=== PATIENT | female | born 1930 | race Caucasian/White ===

== ENCOUNTER 2016-11-12 08:46 | Inpatient (IN) | payer OTHER ==
--- NOTE | 2016-11-12 09:15 | EDPHY ---
H & P Stated Complaint: mechanical fall out of bed this am Time Seen by Provider: 11/12/16 09:03 HPI/ROS: CHIEF COMPLAINT: Left hip pain HISTORY OF PRESENT ILLNESS: 86-year-old female arrives via ambulance, not a trauma activation, stating that this morning she woke up when to use her walker and route to the bathroom however the walker collapsed causing her fall onto her left buttock and hip. She was able to get herself up using her cane and go back to bed, fell back to sleep but awoke with left hip pain. No head injury. This was not a syncopal episode. Her only complaint is left hip and pelvis pain. She is unable to ambulate without assistance. There was no prodrome such as chest pain, dyspnea, dizziness, nausea, vomiting. Last oral intake was last evening PRIMARY CARE PROVIDER:Dr. Tiffany Spann REVIEW OF SYSTEMS: A ten point review of systems was performed and is negative with the exception of the items mentioned in the HPI PAST MEDICAL/SURGICAL HISTORY: no anticoagulant use, hypothyroid SOCIAL HISTORY: denies alcohol use at time of incident. Lives at the independent living facility at [facility] PHYSICAL EXAM 1) GENERAL: Well-developed, well-nourished, alert and oriented. Appears to be in no acute distress. Answering questions appropriately. 2) HEAD: Normocephalic, atraumatic 3) HEENT: Pupils equal, round, reactive to light bilaterally. Negative Horners. Nasopharynx, oropharynx, clear. No deformity or angulation of nose. No septal hematoma. No rhinorrhea. No oral trauma. Ears bilaterally with normal tympanic membranes. No hemotympanum. No fluid or blood in the external auditory canal. No raccoon eyes. No Silvestre sign. Teeth are normally aligned with no gross malocclusion, TMJ bilaterally nontender, facial bones nontender including the zygomatic arch, maxilla mandible. 4) NECK: No cervical collar is on. Posterior cervical spine is nontender, no stepoff, no effusion. Full range of motion which does not elicit any midline cervical spine pain, no posterior midline tenderness, no step-off. 5) LUNGS: Clear to auscultation bilaterally, no wheezes, no rhonchi, no retractions. No obvious signs of trauma. No chest wall pain. No flaring, no grunting. Moving symmetrically. No crepitus. 6) HEART: Regular rate and rhythm, 7) ABDOMEN: No guarding, no rebound, no focal tenderness, no peritoneal signs, no signs of trauma, no ecchymosis 8) MUSCULOSKELETAL: Left lower extremity: Shortened, pain to the left inguinal region and left buttock with range of motion. Intact skin. DP PT pulses present and brisk. Normal color normal temperature distally. Wound soft compartments. Tender to palpation left greater trochanteric region. Otherwise, Moving all extremities, no focal areas of tenderness, no obvious trauma. 9) BACK: No midline vertebral tenderness, no fluctuance, no step-off, no obvious trauma, no visual or palpable abnormality. 10) SKIN: No laceration. No abrasion DIFFERENTIAL DIAGNOSIS: [ no particular include but limited to fracture, dislocation, compartment syndrome - Personal History Current Tetanus Diphtheria and Acellular Pertussis (TDAP): Unsure - Medical/Surgical History Hx Asthma: No Hx Chronic Respiratory Disease: No Hx Diabetes: No Hx Cardiac Disease: No Hx Renal Disease: No Hx Cirrhosis: No Hx Alcoholism: No Hx HIV/AIDS: No Hx Splenectomy or Spleen Trauma: No Other PMH: bilateral hip replacements, knee surgeries - Social History Smoking Status: Never smoked Constitutional: Initial Vital Signs Temperature (C) 36.6 C 11/12/16 08:58 Heart Rate 91 11/12/16 08:58 Respiratory Rate 16 11/12/16 08:58 Blood Pressure 149/100 H 11/12/16 08:58 O2 Sat (%) 88 L 11/12/16 08:58 O2 Delivery Mode Room Air O2 (L/minute) 2 Allergies/Adverse Reactions: No Known Allergies Allergy (Unverified 04/02/12 11:02) Home Medications: Medication Instructions Recorded Acetaminophen [Tylenol 325mg (*)] 325 mg PO DAILY PRN 11/12/16 Fluoxetine HCl [Prozac 40 mg] 40 mg PO DAILY 11/12/16 Levothyroxine [Synthroid 88 mcg 88 mcg PO DAILY06 11/12/16 (*)] Primidone 50 mg PO BID 11/12/16 Propranolol HCl [Inderal 20mg (*)] 20 mg PO BID 11/12/16 celeCOXIB [Celebrex (*)] 200 mg PO HS 11/12/16 clonazePAM [Klonopin (*)] 0.25 mg PO BID 11/12/16 Medical Decision Making - Diagnostics Imaging Results: Imaging Impressions Chest X-Ray 11/12/16 09:12 Impression: No acute findings in the chest. Hip X-Ray 11/12/16 09:12 Impression: 1. Probable nondisplaced fracture of the left superior pubic ramus. 2. Severe osteoarthritis in the left hip. Findings discussed with Chelsey Sequeira 11/12/2016 at 1014. ED Course/Re-evaluation: Patient was re-evaluated with serial examinations. Patient also examined by Dr Orantes in ER. Discussed with the daughter in the patient imaging findings. the patient cannot ambulate. I recommended admission for PT OT, pain control, Ortho consultation. Patient and daughter are agreeable with this. 10:52 a.m.: Phone consultation with hospitalist Dr. Sagrario Foreman who will admit patient - Data Points Laboratory Results: Laboratory Results 11/12/16 09:25 11/12/16 09:25 11/12/16 11/12/16 11/12/16 09:25 09:25 09:25 WBC 10.64 10^3/uL H 10^3/uL (3.80-9.50) RBC 4.63 10^6/uL 10^6/uL (4.18-5.33) Hgb 15.0 g/dL g/dL (12.6-16.3) Hct 45.4 % % (38.0-47.0) MCV 98.1 fL fL (81.5-99.8) MCH 32.4 pg pg (27.9-34.1) MCHC 33.0 g/dL g/dL (32.4-36.7) RDW 12.9 % % (11.5-15.2) Plt Count 194 10^3/uL 10^3/uL (150-400) MPV 9.0 fL fL (8.7-11.7) Neut % (Auto) 73.5 % % (39.3-74.2) Lymph % (Auto) 19.2 % % (15.0-45.0) Guadalupe % (Auto) 5.2 % % (4.5-13.0) Eos % (Auto) 1.1 % % (0.6-7.6) Baso % (Auto) 0.2 % L % (0.3-1.7) Nucleat RBC Rel Count 0.0 % % (0.0-0.2) Absolute Neuts (auto) 7.83 10^3/uL H 10^3/uL (1.70-6.50) Absolute Lymphs (auto) 2.04 10^3/uL 10^3/uL (1.00-3.00) Absolute Monos (auto) 0.55 10^3/uL 10^3/uL (0.30-0.80) Absolute Eos (auto) 0.12 10^3/uL 10^3/uL (0.03-0.40) Absolute Basos (auto) 0.02 10^3/uL 10^3/uL (0.02-0.10) Absolute Nucleated RBC 0.00 10^3/uL 10^3/uL (0-0.01) Immature Gran % 0.8 % % (0.0-1.1) Immature Gran # 0.08 10^3/uL 10^3/uL (0.00-0.10) PT 13.5 SEC SEC (12.0-15.0) INR 1.04 (0.83-1.16) APTT 27.1 SEC SEC (23.0-38.0) Sodium 138 mEq/L mEq/L (134-144) Potassium 3.6 mEq/L mEq/L (3.5-5.2) Chloride 105 mEq/L mEq/L (97-110) Carbon Dioxide 21 mEq/l L mEq/l (22-31) Anion Gap 12 mEq/L mEq/L (8-16) BUN 16 mg/dL mg/dL (7-23) Creatinine 0.8 mg/dL mg/dL (0.6-1.0) Estimated GFR > 60 Glucose 86 mg/dL mg/dL (70-100) Calcium 9.1 mg/dL mg/dL (8.5-10.4) Departure - Departure Disposition: [facility] Inpatient Acute Clinical Impression: Inferior pubic ramus fracture Qualifiers: Encounter type: initial encounter Fracture type: closed Laterality: left Qualified Code(s): S32.592A - Other specified fracture of left pubis, initial encounter for closed fracture Condition: Fair
[2016-11-12 09:37] LABS: % IMMATURE GRANULYOCYTES 0.8 % (0.0-1.1); ABSOLUTE IMMATURE GRANULOCYTES 0.08 10^3/uL (0.00-0.10); ADD DIFF? NO; ADD MORPH? NO; ADD SCAN? NO; ATYPICAL LYMPHOCYTE FLAG 0 (0-99); FRAGMENT RBC FLAG 0 (0-99); HEMATOCRIT 45.4 % (38.0-47.0); LEFT SHIFT FLG 10 (0-99); LIPEMIA HEMOLYSIS FLAG 80 (0-99); MEAN CELL HEMOGLOBIN 32.4 pg (27.9-34.1); MEAN CELL VOLUME 98.1 fL (81.5-99.8); PLATELET CLUMPS FLAG 0 (0-99); PLATELET COUNT 194 10^3/uL (150-400); RED BLOOD CELL COUNT 4.63 10^6/uL (4.18-5.33); RED CELL DISTRIBUTION WIDTH 12.9 % (11.5-15.2)
[2016-11-12 09:49] LABS: INR 1.04 (0.83-1.16); PROTIME(PATIENT) 13.5 SEC (12.0-15.0)
[2016-11-12 09:50] LABS: APTT 27.1 SEC (23.0-38.0)
[2016-11-12 09:59] LABS: ANION GAP 12 mEq/L (8-16); CALCIUM 9.1 mg/dL (8.5-10.4); CARBON DIOXIDE 21 mEq/l (22-31); CHLORIDE 105 mEq/L (97-110); CREATININE 0.8 mg/dL (0.6-1.0); GLOMERULAR FILTRATION RATE > 60; GLUCOSE 86 mg/dL (70-100); POTASSIUM 3.6 mEq/L (3.5-5.2); SODIUM 138 mEq/L (134-144)
[2016-11-12] MEDS ORDERED: ONDANSETRON 4 MG/2 ML VIAL IVP PRN (11:03)
[2016-11-12] MEDS ORDERED: ACETAMINOPHEN 325 MG TAB PO PRN (11:03)
[2016-11-12] MEDS ORDERED: ONDANSETRON DISINTEGRATING 4 MG TAB PO PRN (11:03)
[2016-11-12] MEDS ORDERED: NON-FORMULARY NEW DRUG (Fluoxetine Hcl [Prozac 40 Mg] 40 MG) PO SCH (15:45)
--- NOTE | 2016-11-12 16:49 | GHP ---
[f rep st] HISTORY AND PHYSICAL DATE OF ADMISSION: 11/12/2016 REFERRING PHYSICIAN: Dax Bonilla MD SERVICE: [facility] Hospitalist CONSULTS: Orthopedic Surgery, Dax Bonilla MD. CHIEF COMPLAINT: Left hip pain, status post fall at her home. HISTORY OF PRESENT ILLNESS: The patient is an 86-year-old female who lives independently at [facility], who came in by ambulance to the emergency department today after falling at her home. She says that very early in the morning she was going to the bathroom. Thinks that her ankle twisted underneath her and she fell down onto her left hip. She denies hitting her head, but she also states that she does not remember what happened immediately after the fall. She says that eventually she got herself over to her bed and called for help. She denies any palpitations, lightheadedness, dizziness prior to the fall. She denies any head pain, headache, bleeding or bruising around her head area. She denies any shoulder or neck pain. She states that she fell a few days prior also , twisting her right ankle which is quite bruised, but she had been able to walk on it. She denies any pain in that area currently. Prior to these falls she said that she has been feeling well and in her normal state of health. She denies any recent fever, cough, chills, congestion, nausea , vomiting, diarrhea, headache. She has been having some increasing arthritis pain, particularly in her left shoulder and hip, and was planning to see her primary care provider soon for a referral to orthopedics. She does not recall eating this morning and she is hungry. She says her pain is currently okay when sitting still in bed. Her daughter was not in the room during my visit with her, but she was available earlier in the day. I have placed a call to her to confirm the details of these events. The patient states that her daughter is her power of deputy attorney general. PAST MEDICAL HISTORY: Anxiety, depression, hypothyroidism, tremor, osteoarthritis PAST SURGICAL HISTORY: Right hip arthroplasty. SOCIAL HISTORY: Lives independently at [facility]. She denies any alcohol use or tobacco use. She has a daughter who lives in the area who is her power of deputy attorney general. ALLERGIES: She denies any known drug allergies. MEDICATIONS: Klonopin 0.25 mg twice a day. Fluoxetine 40 mg once a day. Levothyroxine 88 mcg once a day. Primidone 50 mg twice a day. Propranolol HCL 20 mg twice a day. Tylenol as needed. Celebrex 200 mg once a day. REVIEW OF SYSTEMS: 10-point review of systems was conducted and negative, except as noted above. PHYSICAL EXAM: GENERAL: She is a very pleasant elderly female, resting comfortably in her bed in no apparent distress. VITAL SIGNS: Blood pressure is 175/80 (was 194/100 in the emergency department) . She does not recall taking her medication this morning. Heart rate is 80, O2 saturation is 93% on 2 L, respiratory rate was 16, and she is 98.1 on temperature. HEENT: Normocephalic, atraumatic. Pupils equal, round, reactive to light. Extra movements are intact. Oropharynx shows no lesions or trauma. NECK: Supple. No lymphadenopathy, thyromegaly, or tenderness along the cervical spine. CARDIOVASCULAR: Regular rate and rhythm. LUNGS: Clear to auscultation bilaterally. ABDOMEN: Soft. Normoactive bowel sounds. Nontender. Nondistended. EXTREMITIES: Moves all extremities. No cyanosis, clubbing, or edema noted. She has on SCDs and TEDs, which I did not remove to examine her right ankle. However , upon palpation of her ankle there is no tenderness, but she does state that the top of her right ankle is very bruised. NEURO: Cranial nerves 2-12 are grossly intact. PSYCH: She is very pleasant and oriented. She responds appropriately and speech is fluent. LABORATORY DATA: White blood cell count 10.64, H and H of 15 and 45.4, platelet count 194. INR is 1.04. Sodium 138, potassium 3.6, chloride 105, CO2 of 21, BUN of 16, creatinine 0.8, glucose 86, and calcium at 9.1. Per lab reviewed in [employer], her last TSH was done on August 27, 2016. That was at a good range of 1.63. Vitamin D level has not been done since 2009, so will order this for the morning. Hemoglobin A1c was done August 27, 2016. That was normal at 5.2. I do not see a bone density in the chart. Hip x-ray from the emergency department evaluation showed a probable nondisplaced fracture of the left superior pubic rami, severe osteoarthritis in the left hip. Chest x-ray was done and showed a right hemidiaphragm mildly elevated, but no acute changes. Both studies were reviewed personally by myself, and I agree with the final documentation. ASSESSMENT/PLAN: 1. Pubic rami fracture status post a mechanical fall: I have discussed the case with Dr. Dax Bonilla, who will consult on appropriate orthopedic care. Likely to be nonsurgical at this point, and focus will be pain medication and mobility. PT-OT consults have been ordered. I have discussed with her short- term rehab facility, which she is amenable to. I have placed a call to her daughter to discuss the same, left a message for her to contact me. Pelvic x- ray was ordered for completeness. Comfortable in current positioning and oral pain medications have been ordered. 2. Anxiety and depression: She will be continued on her home medications. However, should consider discussing with her primary care provider the use of long-acting benzodiazepines which are generally contraindicated in the elderly. 3. Hypothyroidism: TSH was recently done and in good replacement range, home medications will be continued. 4. Tremor: Primidone and propranolol continued. 5. Hypertension: Noted to be quite elevated in the emergency department, and slightly better now that she is on the medical floor. Doubt that she has taken her medications today. Does not have a diagnosis of HTN, takes propranolol for tremor per daughter. 6. Deep vein thrombosis prophylaxis: SCDs and TEDs currently. Consider adding pharmacological after evaluation by Orthopedic surgery. PRIMARY CARE PHYSICIAN: [facility], Dr. Guillory/ Maria Ines. CODE STATUS: do not resuscitate DISPOSITION: Likely greater than 2 midnights due to pain and need for likely SNF placement. /[id number]/MODL MTDD
[2016-11-12] MEDS: LEVOTHYROXINE 88 MCG TAB PO SCH (16:55)
[2016-11-12] MEDS: HYDROCODONE/APAP 5/325 TAB PO PRN (19:11)
[2016-11-12] MEDS: clonazePAM 0.5 MG TAB PO SCH (20:40)
[2016-11-12] MEDS: PROPRANOLOL HCL 20 MG TAB PO SCH (20:41)
[2016-11-12] MEDS: PRIMIDONE 50 MG TAB PO SCH (20:42)
[2016-11-13] MEDS: HYDROCODONE/APAP 5/325 TAB PO PRN ×5 (01:20→22:58)
--- NOTE | 2016-11-13 03:45 | GCON ---
[f rep st] CONSULTATION DATE OF CONSULTATION: 11/12/2016 CHIEF COMPLAINT: Left hip and groin pain, status post fall. HISTORY OF PRESENT ILLNESS: This is an 86-year-old female, who lives independently. She has a hist ory of a right total hip replacement. She has known arthritis on the left. She has had pain in the left hip for a number of years. She says this has been somewhat intermittent, but tolerable. She was told she needs a hip replacement, but had not undergone this. She did not desire to undergo faby kristy and the recovery period. She did fall 2 days ago, as well as twice yesterday. She has had dif ficulty ambulating on this since. She also twisted her ankle. The ankle has felt okay. She contin ues to have groin pain in the left side, which is worse than was prior, a few days ago. She has karma e pain radiating down the thigh and then past the knee. She denies other symptoms. PAST MEDICAL HISTORY: Anxiety, depression, hypertension, tremor. PAST SURGICAL HISTORY: Right hip arthroplasty. SOCIAL HISTORY: She lives independently. She does not use alcohol or tobacco. ALLERGIES: No known drug allergies. MEDICATIONS: Klonopin, fluoxetine, levothyroxine, propranolol, primidone, Tylenol, Celebrex. REVIEW OF SYSTEMS: A 10-point review of systems was performed and otherwise negative. PHYSICAL EXAMINATION: GENERAL: She is an alert, oriented, alert female, who appears in no acute di stress. VITAL SIGNS: Stable. HEENT: Her head is normocephalic. Her eyes are equal, round. Her face is atraumatic. Her mouth shows moist mucous membranes. HEART: Regular rate and rhythm. LUNG S: Clear. ABDOMEN: Soft. EXTREMITIES: Her upper extremity, she moves well without abnormality. Good strength. Her left lower extremity can externally rotate without much pain. She internally r otates to 0 degrees, externally to 40 degrees. I can flex her to about 40 degrees. Beyond this, kevin ferrera has pain. I can move her well within her range of motion, however. Her knee and ankle appear atr aumatic. Her right lower extremity, she has some bruising of the ankle and is tender in the ATFL. She is neurovascularly intact with good strength distally in both extremities. DIAGNOSTIC STUDIES: Radiographs show a nondisplaced left pubic ramus fracture and severe left hip o steoarthritis, along with a right total hip arthroplasty. ASSESSMENT: 1. Left pubic ramus fracture. 2. Severe left hip degenerative joint disease. 3. Post right total hip. PLAN: I discussed the nature of her condition and treatment options. I think her acute pain and di fficulty walking are coming from her ramus fracture. This is nondisplaced and does appear stable. I would allow her to weight-bear as tolerated on this. I believe a lot of her pain is coming from h er hip arthritis, and this may be acutely worsened arthritic flare due to her falls. She will likel y need a total hip replacement at some point. She is not very interested in a total hip replacement due to her experience the last time. We will allow her to recoup from the recent falls and the pub ic rami fracture and follow her as an outpatient to see if she does desire total hip at some point. /[id number]/MODL
[2016-11-13] MEDS: LEVOTHYROXINE 88 MCG TAB PO SCH (05:41)
[2016-11-13 05:42] LABS: HEMATOCRIT 41.2 % (38.0-47.0); HEMOGLOBIN 13.7 g/dL (12.6-16.3); MEAN CELL HEMOGLOBIN 32.6 pg (27.9-34.1); MEAN CELL HEMOGLOBIN CONCENTR. 33.3 g/dL (32.4-36.7); MEAN CELL VOLUME 98.1 fL (81.5-99.8); RED BLOOD CELL COUNT 4.2 10^6/uL (4.18-5.33); RED CELL DISTRIBUTION WIDTH 12.8 % (11.5-15.2)
[2016-11-13 05:55] LABS: ANION GAP 9 mEq/L (8-16); CALCIUM 8.9 mg/dL (8.5-10.4); CARBON DIOXIDE 21 mEq/l (22-31); CHLORIDE 104 mEq/L (97-110); CREATININE 0.8 mg/dL (0.6-1.0); GLOMERULAR FILTRATION RATE > 60; GLUCOSE 94 mg/dL (70-100); POTASSIUM 3.7 mEq/L (3.5-5.2); SODIUM 134 mEq/L (134-144)
[2016-11-13 06:08] LABS: VITAMIN D 25-HYDROXY TOTAL 20.5 ng/mL (30-100)
[2016-11-13] MEDS: clonazePAM 0.5 MG TAB PO SCH ×2 (09:46→22:57)
[2016-11-13] MEDS: PRIMIDONE 50 MG TAB PO SCH ×2 (09:47→21:17)
[2016-11-13] MEDS: PROPRANOLOL HCL 20 MG TAB PO SCH ×2 (09:47→21:16)
[2016-11-13] MEDS: FLUoxetine 20 MG CAP PO SCH (09:49)
[2016-11-13] MEDS ORDERED: LACTULOSE 20 GM/30 ML UDCUP PO PRN (14:10)
[2016-11-13] MEDS ORDERED: MAGNESIUM HYDROXIDE 30 ML UDCUP PO PRN (14:10)
[2016-11-13] MEDS ORDERED: BISACODYL 10 MG SUPP PR PRN (14:10)
[2016-11-13] MEDS: POLYETHYLENE GLYCOL 3350 17 GM PKT PO SCH (14:49)
--- NOTE | 2016-11-13 15:42 | SOAPPROG ---
SOAP Progress Note Assessment/Plan: Assessment: L pubic rami fx L hip djd Plan: cont mobilization with wbat will allow healing of rami fx over coming weeks and see how her pain does will likely need RAIN for severe hip djd at some point I discussed the plan with her daughter They have my card to make a 2 week f/u appt 11/13/16 15:40 Subjective: less pain in hip Objective: Vital Signs Temp Pulse Resp BP Pulse Ox 36.4 C 67 18 114/59 L 95 11/13/16 11:37 11/13/16 11:37 11/13/16 11:37 11/13/16 11:37 11/13/16 11:37 Laboratory Results 11/13/16 05:16 11/13/16 05:16 11/12/16 11/13/16 11/14/16 05:59 05:59 05:59 Intake Total 550 Output Total 450 Balance 100 PT 13.5 SEC (12.0-15.0) 11/12/16 09:25 INR 1.04 (0.83-1.16) 11/12/16 09:25 I can range hip with no pain R ankle no ttp and good rom ICD10 Worksheet Patient Problems: Problems Problem Status Onset Inferior pubic ramus fracture Acute
--- NOTE | 2016-11-13 19:45 | HOSPPROG ---
Hospitalist Progress Note Assessment/Plan: 1. L pubic rami fracture -per Dr Bonilla, no surgery, ok wt bear as tolerated -plan to discharge to rehab facility when available -PT/OT -says OK with current pain meds 2. Hypoxia -noted at admission 88% RA, has been on O2 since admission -? if this is baseline for her -nl cxr and no SOB/sxs, discussed with daughter that we'll follow closely and consider further eval if changes/worsens -incentive spirometry 3. HTN -home med 4. depression/anxiety -home med 5. Hypothyroid -home med 6. Vitamin D defic -vit d oral supplement started 7. tremor -home meds DVT prophy-lovenox DNR Dispo- to SNF when available PCP- [facility] ([facility]/Maria Ines) Subjective: Feels OK except for pain in L hip- OK pain control with meds. Denies n/v/d. Daughter and others in room. Denies SOB/CP, no prev O2 use per family. Objective: Vital Signs Temp Pulse Resp BP Pulse Ox 98.4 F 77 20 113/73 91 L 11/13/16 16:00 11/13/16 16:00 11/13/16 16:00 11/13/16 16:00 11/13/16 16:00 Laboratory Results 11/13/16 05:16 11/13/16 05:16 11/12/16 11/13/16 11/14/16 11:59 11:59 11:59 Intake Total 550 Output Total 450 250 Balance 100 -250 PT 13.5 SEC (12.0-15.0) 11/12/16 09:25 INR 1.04 (0.83-1.16) 11/12/16 09:25 - Pending Discharge Pending Discharge Within 48 Hours: Yes Pending Discharge Date: 11/15/16 Pending Discharge Time: 11:00 - Physical Exam Constitutional: no apparent distress, appears nourished, not in pain Eyes: PERRL, anicteric sclera, EOMI Ears, Nose, Mouth, Throat: moist mucous membranes Cardiovascular: regular rate and rhythym Respiratory: no respiratory distress, no rales or rhonchi, clear to auscultation Gastrointestinal: normoactive bowel sounds, soft, non-tender abdomen, no palpable masses Skin: warm Psychiatric: interacting appropriately, not anxious, not encephalopathic, thought process linear ICD10 Worksheet Patient Problems: Problems Problem Status Onset Inferior pubic ramus fracture Acute
[2016-11-13] MEDS: ENOXAPARIN 40 MG/0.4 ML SYR SC SCH (21:14)
[2016-11-13] MEDS: CHOLECALCIFEROL VIT D3 2,000 UNITS TAB/CAP PO SCH (21:15)
[2016-11-13] MEDS: SENNOSIDES/DOCUSATE SODIUM TAB PO SCH (21:15)
[2016-11-13] MEDS: CALCIUM CARB W/VIT D 500 MG TAB PO SCH (21:17)
[2016-11-14] MEDS: LEVOTHYROXINE 88 MCG TAB PO SCH (06:05)
[2016-11-14] MEDS: PRIMIDONE 50 MG TAB PO SCH ×2 (07:36→20:12)
[2016-11-14] MEDS: CHOLECALCIFEROL VIT D3 2,000 UNITS TAB/CAP PO SCH (07:37)
[2016-11-14] MEDS: FLUoxetine 20 MG CAP PO SCH (07:37)
[2016-11-14] MEDS: CALCIUM CARB W/VIT D 500 MG TAB PO SCH ×2 (07:37→20:11)
[2016-11-14] MEDS: SENNOSIDES/DOCUSATE SODIUM TAB PO SCH ×2 (07:38→20:14)
[2016-11-14] MEDS: PROPRANOLOL HCL 20 MG TAB PO SCH ×2 (07:38→20:12)
[2016-11-14] MEDS: HYDROCODONE/APAP 5/325 TAB PO PRN ×5 (07:41→20:24)
[2016-11-14] MEDS: clonazePAM 0.5 MG TAB PO SCH ×2 (07:42→20:12)
[2016-11-14] MEDS: POLYETHYLENE GLYCOL 3350 17 GM PKT PO SCH (07:42)
[2016-11-14] MEDS: ENOXAPARIN 40 MG/0.4 ML SYR SC SCH (07:42)
--- NOTE | 2016-11-14 12:49 | HOSPPROG ---
Hospitalist Progress Note Assessment/Plan: First encounter with this patient 1. L pubic rami fracture -per Dr Bonilla, no surgery, ok wt bear as tolerated -plan to discharge to rehab facility when available, likely tomorrow -PT/OT -says OK with current pain meds 2. Hypoxemia, unclear etiology -will get a CXR for further evaluation. She is on 4L. Her exam is c/w rhonchi bilaterally. Normal Work of breathing. -noted at admission 88% RA, has been on O2 since admission -this is not her baseline -cont IS 3. Essential tremor -home med 4. depression/anxiety -home med 5. Hypothyroid -home med 6. Vitamin D defic -vit d oral supplement started 7. tremor -home meds 8. Generalized weakness: working with PT. Will need Rehab DVT prophy-lovenox DNR Dispo- to Rehab likely tomorrow PCP- [facility] [place] [facility] ([facility]/Maria Ines) Plan per above d/w the patient and her daughter. Will likely discharge tomorrow. Etiology of hypoxemia is unclear. No hx of COPD,RAD, CHF, or other. Will check CXR. Subjective: Still needing 4 LO2. This is not her baseline. Some SOB. Normal work of breathing. NO coughing. NO leg swelling. Objective: Vital Signs Temp Pulse Resp BP Pulse Ox 36.9 C 70 16 130/64 H 97 11/14/16 11:45 11/14/16 11:45 11/14/16 11:45 11/14/16 11:45 11/14/16 11:45 Laboratory Results 11/13/16 05:16 11/13/16 05:16 11/13/16 11/14/16 11/15/16 05:59 05:59 05:59 Intake Total 550 200 200 Output Total 450 550 Balance 100 -350 200 PT 13.5 SEC (12.0-15.0) 11/12/16 09:25 INR 1.04 (0.83-1.16) 11/12/16 09:25 - Physical Exam Constitutional: no apparent distress, appears nourished Eyes: PERRL, EOMI Ears, Nose, Mouth, Throat: moist mucous membranes Cardiovascular: regular rate and rhythym, no murmur, rub, or gallop, No JVD, No edema Respiratory: no respiratory distress, no rales or rhonchi, rhonchi Gastrointestinal: normoactive bowel sounds, soft, non-tender abdomen, no palpable masses Musculoskeletal: generalized weakness Neurologic: AAOx3 Psychiatric: interacting appropriately, not anxious, not encephalopathic ICD10 Worksheet Patient Problems: Problems Problem Status Onset Inferior pubic ramus fracture Acute
[2016-11-14 14:58] LABS: % IMMATURE GRANULYOCYTES 0.6 % (0.0-1.1); ABSOLUTE IMMATURE GRANULOCYTES 0.04 10^3/uL (0.00-0.10); ADD DIFF? NO; ADD MORPH? NO; ADD SCAN? NO; ATYPICAL LYMPHOCYTE FLAG 10 (0-99); FRAGMENT RBC FLAG 0 (0-99); HEMATOCRIT 41.5 % (38.0-47.0); HEMOGLOBIN 13.4 g/dL (12.6-16.3); LEFT SHIFT FLG 0 (0-99); LIPEMIA HEMOLYSIS FLAG 80 (0-99); MEAN CELL HEMOGLOBIN 31.9 pg (27.9-34.1); MEAN CELL HEMOGLOBIN CONCENTR. 32.3 g/dL (32.4-36.7); MEAN CELL VOLUME 98.8 fL (81.5-99.8); MEAN PLATELET VOLUME 9.2 fL (8.7-11.7); PLATELET CLUMPS FLAG 10 (0-99); PLATELET COUNT 167 10^3/uL (150-400)
[2016-11-14 15:17] LABS: ANION GAP 7 mEq/L (8-16); CALCIUM 9.2 mg/dL (8.5-10.4); CARBON DIOXIDE 25 mEq/l (22-31); CHLORIDE 104 mEq/L (97-110); CREATININE 0.8 mg/dL (0.6-1.0); GLOMERULAR FILTRATION RATE > 60; GLUCOSE 96 mg/dL (70-100); POTASSIUM 3.7 mEq/L (3.5-5.2); SODIUM 136 mEq/L (134-144)
[2016-11-14 17:28] LABS: PROCALCITONIN 0.11 ng/mL (0.02-0.10)
[2016-11-15] MEDS: HYDROCODONE/APAP 5/325 TAB PO PRN ×4 (03:33→17:44)
[2016-11-15] MEDS: POLYETHYLENE GLYCOL 3350 17 GM PKT PO SCH (09:52)
[2016-11-15] MEDS: FLUoxetine 20 MG CAP PO SCH (09:52)
[2016-11-15] MEDS: PROPRANOLOL HCL 20 MG TAB PO SCH (09:52)
[2016-11-15] MEDS: CALCIUM CARB W/VIT D 500 MG TAB PO SCH (09:52)
[2016-11-15] MEDS: PRIMIDONE 50 MG TAB PO SCH (09:52)
[2016-11-15] MEDS: ENOXAPARIN 40 MG/0.4 ML SYR SC SCH (09:52)
[2016-11-15] MEDS: SENNOSIDES/DOCUSATE SODIUM TAB PO SCH (09:53)
[2016-11-15] MEDS: CHOLECALCIFEROL VIT D3 2,000 UNITS TAB/CAP PO SCH (09:53)
[2016-11-15] MEDS: LEVOTHYROXINE 88 MCG TAB PO SCH (09:53)
[2016-11-15] MEDS: clonazePAM 0.5 MG TAB PO SCH (09:53)
[2016-11-15] MEDS ORDERED: ALBUTEROL 3 ML DEYVIAL IH ONE (12:39)
--- NOTE | 2016-11-15 14:12 | PDIAF ---
- Diagnosis Diagnosis: Pelvic fracture, non operative, WB as tolerated. D/C to rehab Code Status: Do Not Resuscitate - Medication Management Discharge Medications: Medications to Continue on Transfer Acetaminophen [Tylenol 325mg (*)] 325 mg PO DAILY PRN 11/12/16 [Last Taken Unknown] Fluoxetine HCl [Prozac 40 mg] 40 mg PO DAILY 11/12/16 [Last Taken 11/11/16] Levothyroxine [Synthroid 88 mcg (*)] 88 mcg PO DAILY06 11/12/16 [Last Taken 10/22] Primidone 50 mg PO BID 11/12/16 [Last Taken 11/11/16 21:00] Propranolol HCl [Inderal 20mg (*)] 20 mg PO BID 11/12/16 [Last Taken 11/11/16 21 :00] celeCOXIB [Celebrex (*)] 200 mg PO HS 11/12/16 [Last Taken 11/11/16] clonazePAM [Klonopin (*)] 0.25 mg PO BID 11/12/16 [Last Taken 11/11/16 21:00] Acetaminophen [Tylenol 325mg (*)] 650 mg PO Q4HRS PRN #0 tab 11/15/16 [Last Taken Unknown] Albuterol [Proventil Neb] 3 ml IH QID #0 deyvial 11/15/16 [Last Taken Unknown] Calcium Carb W/Vit D [Calcium Carb W/Vit D 500/200 (*)] 500 mg PO BID #0 tab 01/22 [Last Taken Unknown] Cholecalciferol Vit D3 [Vitamin D3 2000 units tab (OTC)] 2,000 units PO DAILY # 0 each 11/15/16 [Last Taken Unknown] Hydrocodone/APAP 5/325 [Gans 5/325 (*)] 1 - 2 tab PO Q4HRS PRN #0 tab 11/15/16 [Last Taken Unknown] Polyethylene Glycol 3350 [Miralax 17 gm (*)] 17 gm PO DAILY #0 pkt 11/15/16 [ Last Taken Unknown] Discharge Medications: Refer to the Discharge Home Medication list for PRN reason. - Orders Diet Recommendation: no restrictions on diet Diet Texture: Regular Texture Diet - Follow Up Care Current Providers and Referrals: Selene Guillory MD [Primary Care Provider] - As per Instructions
--- NOTE | 2016-11-15 14:16 | PDDCSUM ---
Discharge Summary Discharge Summary: 86 yo female who suffered a left pubic rami fracture. Evaluated by Dr. Bonilla, felt to be non operable. See below. Admitted, PT provided, slow improvement. Now ready for rehab. Hospitalization complicated by hypoxemia, likely RAD. Has improved with Albuterol Nebs. Now down to 1 L O2. If worsens, may need steroids. Ready and stable for discharge. The pt and her daughter are in agreement with this plan. Discharge to [facility]. DDX: 1. L pubic rami fracture -per Dr Bonilla, no surgery, ok wt bear as tolerated -plan to discharge to rehab facility/[facility] today -PT/OT -pain is well controlled. Script provided 2. Hypoxemia, likely RAD. Improving on Albuterol. CXR with hyperexpansion. NO infiltrate or congestion. 3. Essential tremor -home med 4. depression/anxiety -home med 5. Hypothyroid -home med 6. Vitamin D defic -vit d oral supplement started 7. Generalized weakness: Exam: VSS on 1L NAD AAOX3 PEERL NO JVD RRR MILD DECREASED BS S/NT/ND NO EDEMA BNP: UNREMARKABLE D/C MEDS: SEE MED REC D/C TO REHAB TOTAL TIME SPENT ON DISCHARGE IS 35 MINS
[2016-11-15 16:07] VITALS: BP 149/77; PULSE 73; RESP 18; TEMP 98.2; O2SAT 94
== END 2016-11-15 17:52 | DRG 536 ==
LOC: EDUNIT# → F3N 12:33
PROVIDERS: ADMIT Family Medicine; ATTEND Family Medicine
DX: S32.512A Fracture of superior rim of left pubis, initial encounter for closed fracture (principal); W06.XXXA Fall from bed, initial encounter; Y92.013 Bedroom of single-family (private) house as the place of occurrence of the external cause; M16.12 Unilateral primary osteoarthritis, left hip; Z96.641 Presence of right artificial hip joint; R09.02 Hypoxemia; E03.9 Hypothyroidism, unspecified; F41.8 Other specified anxiety disorders; G25.0 Essential tremor; E55.9 Vitamin D deficiency, unspecified
CPT/HCPCS: 97110-GP; 97116-GP; 97162-GP; 97165-GO; 97530-GO; 97535-GO; G8978-GO-CK; G8978-GP-CJ; G8979-GO-CI; G8979-GP-CI; J1650; J2405

== ENCOUNTER 2017-03-20 08:47 | Inpatient (IN) | payer OTHER ==
[2017-03-04 14:41] LABS: % IMMATURE GRANULYOCYTES 0.3 % (0.0-1.1); ABSOLUTE IMMATURE GRANULOCYTES 0.03 10^3/uL (0.00-0.10); ADD DIFF? NO; ADD MORPH? NO; ADD SCAN? NO; ATYPICAL LYMPHOCYTE FLAG 10 (0-99); FRAGMENT RBC FLAG 0 (0-99); HEMATOCRIT 45.6 % (38.0-47.0); LEFT SHIFT FLG 0 (0-99); LIPEMIA HEMOLYSIS FLAG 80 (0-99); MEAN CELL HEMOGLOBIN 32.4 pg (27.9-34.1); MEAN CELL HEMOGLOBIN CONCENTR. 32.9 g/dL (32.4-36.7); MEAN CELL VOLUME 98.5 fL (81.5-99.8); MEAN PLATELET VOLUME 8.7 fL (8.7-11.7); PLATELET CLUMPS FLAG 10 (0-99); PLATELET COUNT 228 10^3/uL (150-400); RED BLOOD CELL COUNT 4.63 10^6/uL (4.18-5.33)
--- NOTE | 2017-03-04 16:23 | CPEKG ---
Heart Rate: 73 RR Interval: 822 P-R Interval: 196 QRSD Interval: 88 QT Interval: 440 QTC Interval: 485 P [place]orns[place]: 44 QRS Dornsife: 14 T Wave Dornsife: 43 EKG Severity - NORMAL ECG - EKG Impression: SINUS RHYTHM Electronically Signed By: Vikash Ramos 05-Mar-2017 15:44:02
[~2017-03-20 08:47] MED LIST: ROPIVACAINE 0.2% 80 MG, EPINEPHrine 0.2 MG, KETOROLAC TROMETHAMINE 30 MG in SYRINGE 0 ML IU ONE; TRANEXAMIC ACID 3,000 MG in NS 50 ML IRR ONE; TRANEXAMIC ACID 3,000 MG/50 ML BAG IRR ONE
[2017-03-20] MEDS ORDERED: ACETAMINOPHEN 325 MG TAB PO ONE (10:42)
[2017-03-20] MEDS ORDERED: FAMOTIDINE 20 MG TAB PO ONE (10:42)
[2017-03-20] MEDS ORDERED: DEXAMETHASONE 4 MG/ML VIAL IVP ONE (10:42)
[2017-03-20] MEDS ORDERED: ceFAZolin 2 GM/SWFI 2 GM/20 ML SYR IVP ONE (10:42)
[2017-03-20] MEDS ORDERED: LIDOCAINE 1% 2 ML INJ ID PRN (10:58)
[2017-03-20] MEDS ORDERED: LR 1,000 ML IV ONE (10:58)
--- NOTE | 2017-03-20 11:56 | PDHPUP ---
History & Physical Update H&P update statement: This history and physical update is based on an assessment of the patient which was completed after admission or registration (within 24 hours), but prior to the surgery/procedure. H&P update: H&P reviewed & patient examined, no change in patient's condition since H&P completed
--- NOTE | 2017-03-20 12:16 | PDANEPAE ---
ANE History of Present Illness 86 yo F w OA here for L RAIN ANE Past Medical History - Cardiovascular History Hx Hypertension: Yes Hx Arrhythmias: No Hx Chest Pain: No Hx Coronary Artery / Peripheral Vascular Disease: No Hx CHF / Valvular Disease: No Hx Palpitations: No - Pulmonary History Hx COPD: No Hx Asthma/Reactive Airway Disease: No Hx Recent Upper Respiratory Infection: No Hx Oxygen in Use at Home: No Hx Sleep Apnea: No Sleep Apnea Screening Result - Last Documented: Positive - Neurologic History Hx Cerebrovascular Accident: No Hx Seizures: No Hx Dementia: No Neurologic History Comment: ESSENTIAL TREMORS TO HEAD AND BILATERAL HANDS - Endocrine History Hx Diabetes: No - Renal History Hx Renal Disorders: Yes - Liver History Hx Hepatic Disorders: No - Neurological & Psychiatric Hx Hx Neurological and Psychiatric Disorders: Yes Neurological / Psychiatric History Comment: DEPRESSION - Cancer History Hx Cancer: No - Congenital Disorder History Hx Congenital Disorders: No - GI History Hx Gastrointestinal Disorders: Yes Gastrointestinal History Comment: IBS, CONSTIPATION - Other Health History Other Health History: HYPOTHYROIDISM - Chronic Pain History Chronic Pain: Yes (LOWER BACK) - Surgical History Prior Surgeries: 2006 R RAIN, CHOLYCYSTECTOMY. BRITTANI KNEEREPLACEMENT. HYSTERECTOMY, APPENDECTOMY. 1989 COLON RESECTION ANE Review of Systems Review of Systems: - Exercise capacity METS (RN): 3 METS ANE Patient History - Allergies Allergies/Adverse Reactions: No Known Allergies Allergy (Unverified 04/02/12 11:02) - Home Medications Home Medications: Acetaminophen [Tylenol 325mg (*)] 325 mg PO BID PRN 11/12/16 [Last Taken ] Fluoxetine HCl [Prozac 40 mg] 40 mg PO DAILY 11/12/16 [Last Taken 03/20/17 08:00 ] Levothyroxine [Synthroid 88 mcg (*)] 88 mcg PO DAILY06 11/12/16 [Last Taken 08:00] Primidone 50 mg PO BID 11/12/16 [Last Taken 03/20/17 08:00] Propranolol HCl [Inderal 20mg (*)] 20 mg PO BID 11/12/16 [Last Taken 03/20/17 08 :00] celeCOXIB [Celebrex (*)] 200 mg PO HS 11/12/16 [Last Taken 03/19/17] clonazePAM [Klonopin (*)] 0.25 mg PO DAILY PRN 11/12/16 [Last Taken 03/19/17] clonazePAM [Klonopin (*)] 0.25 mg PO HS 02/14/17 [Last Taken 03/19/17] - NPO status NPO Since - Liquids (Date): 03/20/17 NPO Since - Liquids (Time): 08:00 NPO Since - Solids (Date): 03/19/17 NPO Since - Solids (Time): 18:00 - Anes Hx Anes Hx: post operative nausea, post operative cognitive dysfunction - Smoking Hx Smoking Status: Never smoked - Alcohol Use Alcohol Use: None - Family Anes Hx Family Anes Hx: none Family Hx Anesthesia Complications: NO ANE Labs/Vital Signs - Labs Result Diagrams: 03/04/17 14:24 - Vital Signs Blood Pressure: 157/87 Heart Rate: 69 Respiratory Rate: 16 O2 Sat (%): 92 Height: 165.1 cm Weight: 68.039 kg ANE Physical Exam - Airway Neck exam: FROM Mallampati Score: Class 2 Mouth exam: normal dental/mouth exam - Pulmonary Pulmonary: no respiratory distress, clear to auscultation - Cardiovascular Cardiovascular: regular rate and rhythym, no murmur, rub, or gallop - ASA Status ASA Status: III ANE Anesthesia Plan Anesthesia Plan: GA with mask, spinal Total IV Anesthesia: Yes
[2017-03-20] MEDS ORDERED: PROPOFOL/EMULSION 500 MG/50 ML BOTTLE IV ONE (12:47)
[2017-03-20] MEDS ORDERED: clonazePAM 0.5 MG TAB PO PRN (13:21)
[2017-03-20] MEDS ORDERED: diphenhydrAMINE 25 MG CAP PO PRN (13:22)
[2017-03-20] MEDS ORDERED: DIPHENOXYLATE/ATROPINE LOMOTIL 1 TAB PO PRN (13:22)
[2017-03-20] MEDS ORDERED: PROMETHAZINE HCL 25 MG SUPPR PR PRN (13:22)
[2017-03-20] MEDS ORDERED: METOCLOPRAMIDE 10 MG/2 ML VIAL IVP PRN (13:22)
[2017-03-20] MEDS ORDERED: MAGNESIUM HYDROXIDE 30 ML UDCUP PO PRN (13:22)
[2017-03-20] MEDS ORDERED: BISACODYL 10 MG SUPP PR PRN (13:22)
[2017-03-20] MEDS ORDERED: PROMETHAZINE HCL 25 MG/ML INJ IVP PRN (13:22)
[2017-03-20] MEDS ORDERED: LACTULOSE 20 GM/30 ML UDCUP PO PRN (13:22)
[2017-03-20] MEDS ORDERED: TEMAZEPAM 15 MG CAP PO PRN (13:22)
[2017-03-20] MEDS ORDERED: LR 1,000 ML IV SCH (13:30)
[2017-03-20] MEDS ORDERED: ONDANSETRON 4 MG/2 ML VIAL IVP PRN (13:31)
[2017-03-20] MEDS ORDERED: fentaNYL 100 MCG/2 ML INJ IVP PRN (13:31)
[2017-03-20] MEDS ORDERED: HYDROmorphONE/DILAUDID 1 MG/ML INJ IVP PRN (13:31)
[2017-03-20] MEDS ORDERED: NALOXONE HCL 0.4 MG/ML INJ IVP PRN (13:31)
[2017-03-20] MEDS ORDERED: OXYCODONE/APAP 5/325 TAB PO PRN (13:31)
[2017-03-20] MEDS ORDERED: ACETAMINOPHEN 500 MG TAB PO PRN (13:31)
[2017-03-20] MEDS ORDERED: HYDROCODONE/APAP 5/325 TAB PO PRN (13:31)
[2017-03-20] MEDS ORDERED: PHENYLEPHRINE HCL 100 MCG/ML SYR ONE (13:33)
--- NOTE | 2017-03-20 14:18 | POSTOPPROG ---
Post Op Note Date of Operation: 03/20/17 Surgeon: Rachell Rome Call [facility] Contact [facility] Team Leader: arlin rome Anesthesiologist: dr. gamboa Anesthesia: Spinal Pre-op Diagnosis: left hip OA Post-op Diagnosis: same Indication: left hip pain due to OA that failed conservative measures Procedure: L RAIN ant approach Findings: severe hip OA Inf/Abcess present in the surg proc area at time of surgery?: No EBL: 500-1000
[2017-03-20] MEDS: ONDANSETRON 4 MG/2 ML VIAL IVP PRN ×2 (17:13→20:05)
[2017-03-20] MEDS: oxyCODONE IR 5 MG TAB PO PRN (17:16)
[2017-03-20] MEDS: CYCLOBENZAPRINE 10 MG TAB PO PRN (17:17)
[2017-03-20] MEDS: ACETAMINOPHEN 325 MG TAB PO SCH ×2 (17:17→23:49)
[2017-03-20] MEDS: PRIMIDONE 50 MG TAB PO SCH (21:04)
[2017-03-20] MEDS: FAMOTIDINE 20 MG TAB PO SCH (21:04)
[2017-03-20] MEDS: ceFAZolin 2 GM/DEXTROSE 100 ML IV SCH (21:04)
[2017-03-20] MEDS: SENNOSIDES/DOCUSATE SODIUM TAB PO SCH (21:04)
[2017-03-20] MEDS: PROPRANOLOL HCL 20 MG TAB PO SCH (21:07)
[2017-03-20] MEDS: clonazePAM 0.5 MG TAB PO SCH (21:07)
[2017-03-21 04:54] LABS: HEMOGLOBIN 9.4 g/dL (12.6-16.3)
[2017-03-21] MEDS: LEVOTHYROXINE 88 MCG TAB PO SCH (05:02)
[2017-03-21] MEDS: ACETAMINOPHEN 325 MG TAB PO SCH ×3 (05:02→19:53)
[2017-03-21] MEDS: ceFAZolin 2 GM/DEXTROSE 100 ML IV SCH (05:02)
[2017-03-21 05:12] LABS: ANION GAP 8 mEq/L (8-16); CALCIUM 8.1 mg/dL (8.5-10.4); CARBON DIOXIDE 25 mEq/l (22-31); CHLORIDE 107 mEq/L (97-110); CREATININE 0.9 mg/dL (0.6-1.0); GLOMERULAR FILTRATION RATE 60; GLUCOSE 98 mg/dL (70-100); POTASSIUM 3.7 mEq/L (3.5-5.2); SODIUM 140 mEq/L (134-144)
[2017-03-21] MEDS: PRIMIDONE 50 MG TAB PO SCH ×2 (09:30→19:54)
[2017-03-21] MEDS: FAMOTIDINE 20 MG TAB PO SCH ×2 (09:30→19:53)
[2017-03-21] MEDS: PROPRANOLOL HCL 20 MG TAB PO SCH ×2 (09:31→19:52)
[2017-03-21] MEDS: FLUoxetine 20 MG CAP PO SCH (09:31)
[2017-03-21] MEDS: SENNOSIDES/DOCUSATE SODIUM TAB PO SCH ×2 (09:31→19:52)
[2017-03-21] MEDS: ASPIRIN EC 81 MG TAB PO SCH ×2 (09:32→19:53)
--- NOTE | 2017-03-21 10:58 | SOAPPROG ---
SOAP Progress Note Assessment/Plan: Assessment: Patient is doing ok POD 1 s/p L RAIN Pain management: pain is well controlled on oral pain meds. VTE ppx: recommend aspirin 81 mg BID daily for 4 weeks, cont ROLLY and SCDs Anemia: level is expected initially postop. Asymptomatic. Continue to monitor D/c planning: d/c to home with 24 hour assistance or possible SNF placement dementia: patient has baseline dementia, but may be worse postop Plan: 03/21/17 10:55 Subjective: Montse is resting comfortably this morning, has some confusion, no pain ,denies SOB, chest pain and N/V. Objective: Vital Signs Temp Pulse Resp BP Pulse Ox 36.6 C 85 16 125/63 H 93 03/21/17 08:00 03/21/17 08:00 03/21/17 08:00 03/21/17 08:00 03/21/17 08:00 Laboratory Results 03/21/17 04:10 03/21/17 04:10 03/20/17 03/21/17 03/22/17 05:59 05:59 05:59 Intake Total 2275 Output Total 1100 Balance 1175 LLE; incision dressing is clean and dry, NVI, +pf/df ICD10 Worksheet Patient Problems: Problems Problem Status Onset Primary localized osteoarthritis of left hip Acute Inferior pubic ramus fracture Acute
--- NOTE | 2017-03-21 11:27 | ASMTCMCOM ---
CM Note CM Note Notes: Patient has some confusion post op hip. per therapy may need SNF. The family wishes to avoid SNF as that contributes to her confusion. It is hopeful that patient may dc to home with daughter and 24 hour supervision this weekend if possible. She lives at [facility] and would likely benefit from HHC therapy with RN and PT. She has used [facility] in past. referral placed. CM to follow. Plan Home with 24 hour family supervision and HHC. Date Signed: 03/21/2017 11:27 AM Electronically Signed By:Aleja Castro RN
[2017-03-21] MEDS: clonazePAM 0.5 MG TAB PO SCH (19:54)
[2017-03-21] MEDS: oxyCODONE IR 5 MG TAB PO PRN (21:47)
[2017-03-22] MEDS: ACETAMINOPHEN 325 MG TAB PO SCH ×4 (01:08→18:12)
[2017-03-22 04:52] LABS: HEMATOCRIT 25.7 % (38.0-47.0); HEMOGLOBIN 8.6 g/dL (12.6-16.3)
[2017-03-22] MEDS: LEVOTHYROXINE 88 MCG TAB PO SCH (05:05)
[2017-03-22] MEDS: oxyCODONE IR 5 MG TAB PO PRN ×3 (05:56→20:01)
[2017-03-22] MEDS: SENNOSIDES/DOCUSATE SODIUM TAB PO SCH ×2 (08:45→20:01)
[2017-03-22] MEDS: FAMOTIDINE 20 MG TAB PO SCH ×2 (08:45→20:01)
[2017-03-22] MEDS: PROPRANOLOL HCL 20 MG TAB PO SCH ×2 (08:47→20:01)
[2017-03-22] MEDS: FLUoxetine 20 MG CAP PO SCH (08:47)
[2017-03-22] MEDS: ASPIRIN EC 81 MG TAB PO SCH ×2 (08:47→20:01)
[2017-03-22] MEDS: PRIMIDONE 50 MG TAB PO SCH ×2 (08:47→20:05)
--- NOTE | 2017-03-22 15:01 | GOP ---
[f rep st] OPERATIVE REPORT DATE OF OPERATION: 03/20/2017 SURGEON: Hattie Almanza MD RN NEONATAL: Kellee Almanza PA-C ANESTHESIA: Spinal. PREOPERATIVE DIAGNOSIS: Left hip osteoarthritis. POSTOPERATIVE DIAGNOSIS: Left hip osteoarthritis. PROCEDURE PERFORMED: Left total hip arthroplasty. ESTIMATED BLOOD LOSS: IMPLANTS: Accolade II size 4 at 132. The acetabular component is a 52 mm Tritanium. The liner is a Trident X3, 32 mm. The head is a Biolox Delta 32 mm + 12. FINDINGS: INDICATIONS: The patient has progressively worsening arthritis of the hip which has failed medical management. The patient understands the treatment options including continued non-operative care and has selected surgical intervention. The patient has decided to undergo total hip arthroplasty via the direct anterior approach, understanding the risks of the procedure including, but not limited to, neurovascular injury, infection, persistent pain, component wear and loosening, deep venous thrombosis, pulmonary embolism, limb length inequality, hip instability (including dislocation), and intra-operative fractures. DESCRIPTION OF PROCEDURE: After proper identification of the patient including verification and marking the surgical site, the patient was brought to the operating room and placed in the supine position. All bony prominences were well padded. Anesthesia was induced without complication and intravenous prophylactic antibiotics were administered prior to skin incision. The operative leg was placed in the Trumpf Arch table extension and the well leg in a Yellowfin leg sandy. The patient was prepped and draped in the usual sterile fashion. The C-arm was draped for intra-operative fluoroscopy to check acetabular position, femoral component position including leg length and femoral offset. Attention was then drawn to surgical exposure of the hip. An incision was made with a #10 Bard Rober blade starting 3 cm lateral and 3 cm distal to the anterior superior iliac spine measuring 8-10 cm and coursing distally toward the greater trochanter. The skin and subcutaneous tissues were divided sharply down to the fascia dina. The fascia dina was incised in line with the skin incision exposing the underlying tensor fascia dina muscle. The muscle was bluntly elevated from the fascia and the first extracapsular Cobra retractor was placed laterally at the junction of the superior femoral neck and greater trochanter. The lateral femoral circumflex vessels were identified, cauterized, and divided with the Aquamantys bipolar cautery. The deep investing fascia of the TFL was divided to allow proper mobilization of the muscle preventing damage during the retraction. The reflected head of the rectus femoris muscle was elevated off the anterior hip capsule and a medial Cobra retractor was placed just proximal to the lesser trochanter. The anterior capsulotomy was made sharply from the superolateral acetabulum to the saddle junction of the superior femoral neck and greater trochanter, then coursing inferomedial towards the lesser trochanter. The retractors were then placed in the intracapsular position for femoral neck osteotomy. Corresponding to pre-operative templating, the osteotomy was made with the oscillating saw carefully protecting the greater trochanter and soft tissues. The femoral head was removed from the acetabulum with a corkscrew and confirmed to be severely arthritic with exposed bone, deformity and osteophytes. Similar findings were confirmed in the acetabulum. The Arch table extension was then placed in 40 degrees external rotation. Attention was then drawn to the acetabular preparation. After placement of the anterior and posterior Cobra retractors outside the labrum and intracapsular, the circumferential labrum was removed sharply. The foveal contents were then removed and hemostasis obtained with cautery. The first reamer selected was sized using the removed femoral head. Reaming began with medialization and then commenced in 2 mm increments at 45 degrees of abduction and 15 degrees of anteversion using fluoroscopic navigation. Reaming ceased 1 mm less than the definitive acetabular component and corresponded to the pre-operative templating. The final acetabular component was inserted using fluoroscopy to achieve proper orientation yielding excellent purchase and stability in the acetabulum. The final acetabular liner was then placed and its seating confirmed. Attention was then turned to the femur. The Arch table extension was placed in extension and adduction, delivering the osteotomized femoral neck into the wound. A 2-pronged femoral elevator was placed at the calcar and another at the tip of the greater trochanter. The posterolateral capsule was released with cautery allowing mobilization of the femur lateral and anterior for preparation. The external rotators were visualized and preserved. A curette and rongeur were used to open the starting point for broaching. Serial broaching started with the #0 broach and ended with the broach that exhibited excellent fit in the proximal femur. A change in pitch during mallet strikes was accompanied by the inability to advance the broach any further. The trial reduction was performed and fluoroscopic navigation was utilized to check limb length. Adjustments were made to equalize limb length accordingly. After the final trials were accepted they were removed and the wound was copiously lavaged. The femoral component was seated to the same depth as the final broach and the femoral head was impacted onto the clean trunion. The hip was then reduced for the final time and once more fluoroscopy was used to check that limb length equality was achieved. The wound was irrigated and closed in layers, the fascia dina with 2-0 Quill, the subcutaneous tissue with 2-0 Quill, and the skin with Dermabond. Sterile dressings were applied. Final sharps and sponge counts were accurate. The patient was then transferred to a hospital bed and brought to the recovery room in stable condition. /[id number]/MODL MTDD
[2017-03-22] MEDS: clonazePAM 0.5 MG TAB PO SCH (20:06)
[2017-03-22] MEDS: POLYETHYLENE GLYCOL 3350 17 GM PKT PO PRN (20:06)
[2017-03-23] MEDS: ACETAMINOPHEN 325 MG TAB PO SCH ×5 (00:22→23:44)
[2017-03-23] MEDS: oxyCODONE IR 5 MG TAB PO PRN ×6 (00:22→23:44)
[2017-03-23] MEDS: LEVOTHYROXINE 88 MCG TAB PO SCH (05:41)
[2017-03-23] MEDS: FLUoxetine 20 MG CAP PO SCH (09:07)
[2017-03-23] MEDS: PROPRANOLOL HCL 20 MG TAB PO SCH ×2 (09:08→19:54)
[2017-03-23] MEDS: PRIMIDONE 50 MG TAB PO SCH ×2 (09:08→19:56)
[2017-03-23] MEDS: SENNOSIDES/DOCUSATE SODIUM TAB PO SCH ×2 (09:09→19:56)
[2017-03-23] MEDS: FAMOTIDINE 20 MG TAB PO SCH ×2 (09:09→19:56)
--- NOTE | 2017-03-23 09:29 | SOAPPROG ---
SOAP Progress Note Assessment/Plan: Assessment: Pt s/p L RAIN POD2 doing better cognitively will cont to monitor hopefully home vsSNFtomorrow Plan: 03/23/17 09:28 Objective: Vital Signs Temp Pulse Resp BP Pulse Ox 36.8 C 89 16 108/56 L 97 03/23/17 07:57 03/23/17 09:08 03/23/17 07:57 03/23/17 09:08 03/23/17 07:57 Laboratory Results 03/22/17 04:06 03/21/17 04:10 03/22/17 03/23/17 03/24/17 05:59 05:59 05:59 Intake Total 250 550 Output Total 700 1000 Balance -450 -450 ICD10 Worksheet Patient Problems: Problems Problem Status Onset Primary localized osteoarthritis of left hip Acute Inferior pubic ramus fracture Acute
--- NOTE | 2017-03-23 09:31 | SOAPPROG ---
SOAP Progress Note Assessment/Plan: Assessment: Pt s/p L RAIN POD3 Fell out of bed overnight and sustained periprosthetic Left femur fx rec bed rest transfusion will need surgery to fix discussed with family will proceed with rev L RAIN tomorrow at noon NPO at [facility] ASA Plan: 03/23/17 09:28 03/23/17 09:29 Objective: Vital Signs Temp Pulse Resp BP Pulse Ox 36.8 C 89 16 108/56 L 97 03/23/17 07:57 03/23/17 09:08 03/23/17 07:57 03/23/17 09:08 03/23/17 07:57 Laboratory Results 03/22/17 04:06 03/21/17 04:10 03/22/17 03/23/17 03/24/17 05:59 05:59 05:59 Intake Total 250 550 Output Total 700 1000 Balance -450 -450 ICD10 Worksheet Patient Problems: Problems Problem Status Onset Primary localized osteoarthritis of left hip Acute Inferior pubic ramus fracture Acute
--- NOTE | 2017-03-23 13:43 | ASMTCMCOM ---
CM Note CM Note Notes: Pt fell out of bed last night and sustained L femur fx. Will need another surgery for L RAIN revision. Was set up with [facility] when cleared for d/,c however, given her need for another surgery will review therapy input after the survery to determine if pt will need a higher level of care at d/c (SNF/IR). Date Signed: 03/23/2017 01:43 PM Electronically Signed By:SCHUYLER Lombardo
[2017-03-23] MEDS: clonazePAM 0.5 MG TAB PO SCH (19:55)
[2017-03-24] MEDS: LEVOTHYROXINE 88 MCG TAB PO SCH (04:55)
[2017-03-24] MEDS: ACETAMINOPHEN 325 MG TAB PO SCH ×3 (04:55→18:34)
[2017-03-24 05:34] LABS: % IMMATURE GRANULYOCYTES 1.1 % (0.0-1.1); ABSOLUTE IMMATURE GRANULOCYTES 0.13 10^3/uL (0.00-0.10); ADD DIFF? NO; ADD MORPH? NO; ADD SCAN? NO; ATYPICAL LYMPHOCYTE FLAG 0 (0-99); FRAGMENT RBC FLAG 0 (0-99); HEMATOCRIT 28.1 % (38.0-47.0); HEMOGLOBIN 9.3 g/dL (12.6-16.3); LEFT SHIFT FLG 10 (0-99); LIPEMIA HEMOLYSIS FLAG 80 (0-99); MEAN CELL HEMOGLOBIN 31.1 pg (27.9-34.1); MEAN CELL HEMOGLOBIN CONCENTR. 33.1 g/dL (32.4-36.7); MEAN PLATELET VOLUME 9.6 fL (8.7-11.7); PLATELET CLUMPS FLAG 0 (0-99); PLATELET COUNT 145 10^3/uL (150-400); RED BLOOD CELL COUNT 2.99 10^6/uL (4.18-5.33); RED CELL DISTRIBUTION WIDTH 16.4 % (11.5-15.2)
[2017-03-24 05:40] LABS: ALANINE AMINOTRANSFERASE 26 IU/L (9-52); ALBUMIN 2.3 g/dL (3.5-5.0); ALKALINE PHOSPHATASE 64 IU/L (38-126); ANION GAP 8 mEq/L (8-16); ASPARTATE AMINOTRANSFERASE 18 IU/L (14-46); BILIRUBIN,TOTAL 0.6 mg/dL (0.1-1.4); CALCIUM 7.7 mg/dL (8.5-10.4); CARBON DIOXIDE 24 mEq/l (22-31); CHLORIDE 105 mEq/L (97-110); CREATININE 0.7 mg/dL (0.6-1.0); GLOMERULAR FILTRATION RATE > 60; GLUCOSE 92 mg/dL (70-100); POTASSIUM 3.9 mEq/L (3.5-5.2); SODIUM 137 mEq/L (134-144); TOTAL PROTEIN 4.7 g/dL (6.3-8.2)
[2017-03-24] MEDS ORDERED: POVIDONE-IODINE 20 ML in SODIUM CL IRRIG SOLUTION 500 ML IRR ONE (07:55)
[2017-03-24] MEDS ORDERED: ROPIVACAINE 0.2% 80 MG, EPINEPHrine 0.2 MG, KETOROLAC TROMETHAMINE 30 MG in SYRINGE 0 ML IU ONE (07:55)
[2017-03-24] MEDS ORDERED: ceFAZolin 2 GM/SWFI 2 GM/20 ML SYR IVP ONE (07:55)
[2017-03-24] MEDS ORDERED: DEXAMETHASONE 4 MG/ML VIAL IVP ONE (07:55)
[2017-03-24] MEDS: PROPRANOLOL HCL 20 MG TAB PO SCH ×2 (08:48→21:58)
[2017-03-24] MEDS: CYCLOBENZAPRINE 10 MG TAB PO PRN (08:48)
[2017-03-24] MEDS: FAMOTIDINE 20 MG TAB PO SCH ×2 (08:49→21:57)
[2017-03-24] MEDS: PRIMIDONE 50 MG TAB PO SCH ×2 (08:50→21:58)
--- NOTE | 2017-03-24 09:17 | PDANEPAE ---
ANE History of Present Illness 86 year old female w/ cognitive impairment s/p hip arthroplasty s/p fall presents for hip arthroplasty revision. ANE Past Medical History - Cardiovascular History Hx Hypertension: Yes Hx Arrhythmias: No Hx Chest Pain: No Hx Coronary Artery / Peripheral Vascular Disease: No Hx CHF / Valvular Disease: No Hx Palpitations: No - Pulmonary History Hx COPD: No Hx Asthma/Reactive Airway Disease: No Hx Recent Upper Respiratory Infection: No Hx Oxygen in Use at Home: No Hx Sleep Apnea: No Sleep Apnea Screening Result - Last Documented: Positive - Neurologic History Hx Cerebrovascular Accident: No Hx Seizures: No Hx Dementia: Yes Neurologic History Comment: ESSENTIAL TREMORS TO HEAD AND BILATERAL HANDS. Per discussion with daughter (Bambi Ruiz), patient does have baseline cognitive impairment. - Endocrine History Hx Diabetes: No Hypothyroid: Yes Hyperthyroid: No Obesity: no - Renal History Hx Renal Disorders: Yes - Liver History Hx Hepatic Disorders: No - Neurological & Psychiatric Hx Hx Neurological and Psychiatric Disorders: Yes Neurological / Psychiatric History Comment: DEPRESSION - Cancer History Hx Cancer: No - Congenital Disorder History Hx Congenital Disorders: No - GI History Hx Gastrointestinal Disorders: Yes Gastrointestinal History Comment: IBS, CONSTIPATION - Other Health History Other Health History: HYPOTHYROIDISM - Chronic Pain History Chronic Pain: Yes (LOWER BACK) - Surgical History Prior Surgeries: 2006 R RAIN, CHOLYCYSTECTOMY. BRITTANI KNEEREPLACEMENT. HYSTERECTOMY, APPENDECTOMY. 1989 COLON RESECTION ANE Review of Systems Review of Systems: - Exercise capacity METS (RN): 3 METS - Systems Muscolosketal: Reports: joint pain Neurological: Reports: other (dementia; delerium) ANE Patient History - Allergies Allergies/Adverse Reactions: No Known Allergies Allergy (Unverified 04/02/12 11:02) - Home Medications Home Medications: Acetaminophen [Tylenol 325mg (*)] 325 mg PO BID PRN 11/12/16 [Last Taken ] Fluoxetine HCl [Prozac 40 mg] 40 mg PO DAILY 11/12/16 [Last Taken 03/20/17 08:00 ] Levothyroxine [Synthroid 88 mcg (*)] 88 mcg PO DAILY06 11/12/16 [Last Taken 08:00] Primidone 50 mg PO BID 11/12/16 [Last Taken 03/20/17 08:00] Propranolol HCl [Inderal 20mg (*)] 20 mg PO BID 11/12/16 [Last Taken 03/20/17 08 :00] celeCOXIB [Celebrex (*)] 200 mg PO HS 11/12/16 [Last Taken 03/19/17] clonazePAM [Klonopin (*)] 0.25 mg PO DAILY PRN 11/12/16 [Last Taken 03/19/17] clonazePAM [Klonopin (*)] 0.25 mg PO HS 02/14/17 [Last Taken 03/19/17] - NPO status NPO Status: no food or drink >8 hours NPO Since - Liquids (Date): 03/20/17 NPO Since - Liquids (Time): 08:00 NPO Since - Solids (Date): 03/19/17 NPO Since - Solids (Time): 18:00 - Anes Hx Anes Hx: post operative cognitive dysfunction - Smoking Hx Smoking Status: Never smoked - Alcohol Use Alcohol Use: None - Family Anes Hx Family Anes Hx: neg - N/A Family Hx Anesthesia Complications: NO ANE Labs/Vital Signs - Labs Result Diagrams: 03/24/17 04:10 03/24/17 04:10 - Vital Signs Vital Signs: reviewed preoperatively; see RN documention for details Blood Pressure: 141/72 Heart Rate: 85 Respiratory Rate: 18 O2 Sat (%): 96 Height: 165.1 cm Weight: 68.039 kg ANE Physical Exam - Airway Neck exam: FROM Mallampati Score: Class 2 Mouth exam: normal dental/mouth exam - Pulmonary Pulmonary: no respiratory distress - Cardiovascular Cardiovascular: regular rate and rhythym - ASA Status ASA Status: III ANE Anesthesia Plan Total IV Anesthesia: No
[2017-03-24] MEDS: FLUoxetine 20 MG CAP PO SCH (09:59)
[2017-03-24] MEDS: SENNOSIDES/DOCUSATE SODIUM TAB PO SCH ×2 (09:59→21:58)
[2017-03-24] MEDS ORDERED: TRANEXAMIC ACID 3,000 MG/50 ML BAG IRR ONE (12:24)
[2017-03-24] MEDS ORDERED: DEXAMETHASONE 4 MG/ML VIAL ONE ×2 (13:38→16:25)
[2017-03-24] MEDS ORDERED: ceFAZolin 2 GM/SWFI 20 ML SYR IVP ONE (13:38)
[2017-03-24] MEDS ORDERED: fentaNYL 100 MCG/2 ML INJ ONE (14:00)
[2017-03-24] MEDS ORDERED: PROPOFOL/EMULSION 500 MG/50 ML BOTTLE IV ONE (14:01)
[2017-03-24] MEDS ORDERED: LABETALOL HCL 5 MG/ML 20 ML MDV ONE (14:40)
[2017-03-24] MEDS: TRANEXAMIC ACID 3,000 MG in NS 50 ML IRR ONE ×2 (15:00→16:16)
[2017-03-24] MEDS ORDERED: NALOXONE HCL 0.4 MG/ML INJ IVP PRN (16:20)
[2017-03-24] MEDS ORDERED: ONDANSETRON 4 MG/2 ML VIAL ONE (16:25)
[2017-03-24] MEDS ORDERED: SUGAMMADEX SODIUM 200 MG/2 ML VIAL IVP ONE (16:25)
[2017-03-24] MEDS ORDERED: OXYCODONE/APAP 5/325 TAB PO PRN (16:36)
--- NOTE | 2017-03-24 16:42 | POSTOPPROG ---
Post Op Note Date of Operation: 03/24/17 Surgeon: Rachell Almanza Service Loss Control Consultant: Herminio Oliveira MD Anesthesiologist: Jae Anesthesia: GET(General Endotracheal) Pre-op Diagnosis: left periprosthetic femur fx Post-op Diagnosis: same Indication: pain Procedure: rev L femur RAIN Findings: L periprosthetic femur fx involving gr troch Inf/Abcess present in the surg proc area at time of surgery?: No EBL: 100-500
--- NOTE | 2017-03-24 16:42 | POSTANESTH ---
Post Anesthetic Evaluation Cardiovascular Status: Similar to Pre-Op Cond Respiratory Status: Normal, Stable, Similar to Pre-op Cond. Level of Consciousness/Mental Status: Can Participate in Eval, Moderately Sleepy Pain Control: Adequate, Prn Tx Ordered Nausea/Vomiting Control: Adequate, Prn Tx Ordered Complications Possibly Related to Anesthesia: None Noted (General anesthesia tolerated well. Responds to name with eye opening and responds to questions in the pacu. Will order bp managemen with labetolol.)
[2017-03-24] MEDS ORDERED: LABETALOL HCL 5 MG/ML 20 ML MDV IVP PRN (16:45)
[2017-03-24] MEDS ORDERED: D5W 1/2 NS W/ 20 KCl/L 1,000 ML IV SCH (16:45)
[2017-03-24] MEDS ORDERED: HYDROmorphONE/DILAUDID 1 MG/ML INJ ONE (16:49)
[2017-03-24] MEDS: HYDROmorphONE/DILAUDID 1 MG/ML INJ IVP PRN ×3 (16:53→17:27)
[2017-03-24] MEDS: oxyCODONE IR 5 MG TAB PO PRN (18:34)
[2017-03-24] MEDS: clonazePAM 0.5 MG TAB PO SCH (21:56)
[2017-03-25] MEDS: ACETAMINOPHEN 325 MG TAB PO SCH ×5 (00:08→23:57)
[2017-03-25] MEDS: oxyCODONE IR 5 MG TAB PO PRN ×6 (00:10→23:57)
[2017-03-25 04:52] LABS: HEMATOCRIT 27.8 % (38.0-47.0)
[2017-03-25 05:21] LABS: ANION GAP 4 mEq/L (8-16); CALCIUM 7.3 mg/dL (8.5-10.4); CARBON DIOXIDE 26 mEq/l (22-31); CHLORIDE 105 mEq/L (97-110); CREATININE 0.7 mg/dL (0.6-1.0); GLOMERULAR FILTRATION RATE > 60; GLUCOSE 115 mg/dL (70-100); POTASSIUM 4.2 mEq/L (3.5-5.2); SODIUM 135 mEq/L (134-144)
[2017-03-25] MEDS: LEVOTHYROXINE 88 MCG TAB PO SCH (06:03)
[2017-03-25] MEDS: PROPRANOLOL HCL 20 MG TAB PO SCH ×2 (09:18→20:51)
[2017-03-25] MEDS: SENNOSIDES/DOCUSATE SODIUM TAB PO SCH ×2 (09:19→20:52)
[2017-03-25] MEDS: FLUoxetine 20 MG CAP PO SCH (09:19)
[2017-03-25] MEDS: POLYETHYLENE GLYCOL 3350 17 GM PKT PO PRN (09:21)
[2017-03-25] MEDS: ENOXAPARIN 30 MG/0.3 ML SYR SC SCH (09:21)
[2017-03-25] MEDS: FAMOTIDINE 20 MG TAB PO SCH ×2 (09:21→20:50)
[2017-03-25] MEDS: PRIMIDONE 50 MG TAB PO SCH ×2 (09:21→20:50)
--- NOTE | 2017-03-25 12:05 | SOAPPROG ---
SOAP Progress Note Assessment/Plan: Assessment: Pt s/p L rev RAIN POD1 for periprosthetic Left femur fx rec slow progress will need SNF Plan: 03/23/17 09:28 03/23/17 09:29 03/25/17 12:03 Objective: Vital Signs Temp Pulse Resp BP Pulse Ox 36.5 C 79 14 131/63 H 98 03/25/17 08:30 03/25/17 08:30 03/25/17 08:30 03/25/17 08:30 03/25/17 08:30 Laboratory Results 03/25/17 04:09 03/25/17 04:09 03/24/17 03/25/17 03/26/17 05:59 05:59 05:59 Intake Total 2450 3100 Output Total 1300 2150 Balance 1150 950 dressing dry ICD10 Worksheet Patient Problems: Problems Problem Status Onset Primary localized osteoarthritis of left hip Acute Inferior pubic ramus fracture Acute
[2017-03-25] MEDS: CYCLOBENZAPRINE 10 MG TAB PO PRN (13:02)
--- NOTE | 2017-03-25 14:09 | ASMTCMCOM ---
CM Note CM Note Notes: Chart reviewed. Spoke with MD. Per therapies patient will need SNF for disposition at this point in time. Referral to [facility] Awaiting notification. CM to follow. Date Signed: 03/25/2017 02:09 PM Electronically Signed By:Aleja Castro RN
[2017-03-25] MEDS: clonazePAM 0.5 MG TAB PO SCH (20:49)
[2017-03-25] MEDS: ONDANSETRON DISINTEGRATING 4 MG TAB PO PRN (20:53)
[2017-03-25] MEDS ORDERED: NS 500 ML IV SCH (23:00)
[2017-03-25 23:09] LABS: HEMATOCRIT 26.5 % (38.0-47.0); HEMOGLOBIN 9.3 g/dL (12.6-16.3)
[2017-03-25 23:25] LABS: ANION GAP 6 mEq/L (8-16); CALCIUM 7.5 mg/dL (8.5-10.4); CARBON DIOXIDE 23 mEq/l (22-31); CHLORIDE 103 mEq/L (97-110); CREATININE 0.9 mg/dL (0.6-1.0); GLOMERULAR FILTRATION RATE 60; GLUCOSE 86 mg/dL (70-100); POTASSIUM 3.9 mEq/L (3.5-5.2); SODIUM 132 mEq/L (134-144)
[2017-03-25] MEDS: NS W/ 20 KCl/L 1,000 ML IV SCH (23:57)
[2017-03-26] MEDS: oxyCODONE IR 5 MG TAB PO PRN ×4 (03:11→21:38)
[2017-03-26] MEDS: ACETAMINOPHEN 325 MG TAB PO SCH ×2 (04:23→11:23)
[2017-03-26] MEDS: LEVOTHYROXINE 88 MCG TAB PO SCH (04:24)
[2017-03-26] MEDS: CYCLOBENZAPRINE 10 MG TAB PO PRN (04:34)
[2017-03-26 05:04] LABS: HEMATOCRIT 26.2 % (38.0-47.0)
[2017-03-26] MEDS: FAMOTIDINE 20 MG TAB PO SCH ×2 (08:51→21:33)
[2017-03-26] MEDS: PROPRANOLOL HCL 20 MG TAB PO SCH ×2 (08:51→21:34)
[2017-03-26] MEDS: SENNOSIDES/DOCUSATE SODIUM TAB PO SCH ×2 (08:52→21:35)
[2017-03-26] MEDS: PRIMIDONE 50 MG TAB PO SCH ×2 (08:52→21:34)
[2017-03-26] MEDS: FLUoxetine 20 MG CAP PO SCH (08:54)
[2017-03-26] MEDS: ENOXAPARIN 30 MG/0.3 ML SYR SC SCH (08:55)
[2017-03-26] MEDS: NS W/ 20 KCl/L 1,000 ML IV SCH (09:35)
--- NOTE | 2017-03-26 11:23 | SOAPPROG ---
<Kellee Almanza - Last Filed: 03/26/17 11:19> SOAP Progress Note Assessment/Plan: Assessment: Patient is doing ok s/p L RAIN and periprosthetic femur ORIF 1) Pain management: pain is well controlled on oral pain meds. c/o vague body pain 2) VTE ppx: recommend aspirin 81 mg BID daily for 4 weeks, cont ROLLY and SCDs 3) Anemia: level is expected initially postop. transfusion this weekend. 4) D/c planning: d/c to SNF once medically stable 5) dementia: patient has baseline dementia, improving over course of hospital stay compared to POD 1 6) hypocalcemia: worsening, recommend hospitalist eval and work up 7) hyponatremia: recommend hospitalist eval and work up 8) Activity precautions: anterior and posterior hip precautions. WBAT with FWW. must use large ABduction pillow. Plan: 03/21/17 10:55 03/26/17 11:19 Subjective: Montse is sitting in a chair comfortably, c/o vague body pain. Objective: Vital Signs Temp Pulse Resp BP Pulse Ox 36.5 C 76 16 135/66 H 94 03/26/17 08:00 03/26/17 08:51 03/26/17 08:00 03/26/17 08:51 03/26/17 08:00 Laboratory Results 03/26/17 04:15 03/25/17 23:00 03/25/17 03/26/17 03/27/17 05:59 05:59 05:59 Intake Total 3100 920 450 Output Total 2150 1050 750 Balance 950 -130 -300 LLE: anterior hip dressing is clean and dry, posterior hip dressing has some drainage, bloody serous fluid ICD10 Worksheet Patient Problems: Problems Problem Status Onset Primary localized osteoarthritis of left hip Acute chronic disease mgmt/transitional care Acute Inferior pubic ramus fracture Acute <Rachell Almanza - Last Filed: 03/26/17 20:58> SOAP Progress Note Assessment/Plan: Assessment: Pt is on lovenox not ASA Plan: 03/26/17 20:58 Objective: Vital Signs Temp Pulse Resp BP Pulse Ox 36.6 C 88 20 130/71 H 95 03/26/17 19:38 03/26/17 19:38 03/26/17 19:38 03/26/17 19:38 03/26/17 19:38 Laboratory Results 03/26/17 04:15 03/25/17 23:00 03/25/17 03/26/17 03/27/17 05:59 05:59 05:59 Intake Total 3100 920 1600 Output Total 2150 1050 1150 Balance 950 -130 450
[2017-03-26] MEDS ORDERED: PROMETHAZINE HCL 25 MG/ML INJ IVP PRN (13:17)
[2017-03-26] MEDS: ACETAMINOPHEN 500 MG TAB PO SCH ×2 (14:16→21:32)
[2017-03-26] MEDS ORDERED: PROTOCOL CALCIUM 1 DOSE IV PRN (14:46)
[2017-03-26] MEDS: traMADol 50 MG TAB PO PRN (15:01)
[2017-03-26 15:36] LABS: IONIZED CALCIUM 1.17 MMOL/L (1.12-1.30)
--- NOTE | 2017-03-26 16:26 | GOP ---
[f rep st] OPERATIVE REPORT DATE OF OPERATION: 03/24/17 SURGEON: Hattie Almanza MD ESTATE MANAGER: Michael Oliveira MD, and Christian ANESTHESIA: General. PREOPERATIVE DIAGNOSIS: Left periprosthetic femur fracture. POSTOPERATIVE DIAGNOSIS: Left periprosthetic femur fracture. PROCEDURE PERFORMED: Revision left total hip arthroplasty, femoral side. FINDINGS: ESTIMATED BLOOD LOSS: 500 cc. INDICATIONS: The patient is an 86-year-old female who underwent a left total hip arthroplasty. Prior to discharge from the hospital she fell out of bed and sustained a left periprosthetic femur fracture. The patient had risks and benefits explained to her and her family. Informed consent was obtained from the daughter. Risks included bleeding, infection, damage to nerves and vessels, need for further surgery, risk of blood clots, blood clots going to her lungs, various things like stroke, heart attack, and , as well as risk of dislocation, fracture, and leg length discrepancy. The patient's daughter expressed understanding and informed consent was obtained. DESCRIPTION OF PROCEDURE: The patient was identified in the preoperative holding area. Her left lower extremity was marked. She was brought back to the operating room. After induction of anesthesia she was positioned in the left lateral decubitus position. She was then prepped and draped in the usual sterile fashion. A time-out was taken confirming patient, laterality, procedure , allergies and antibiotic status. She was given 2 g of Ancef. We started with a posterior lateral approach to the hip. Identified the fracture area. Charnley was placed. Identified the femoral prosthesis. This was removed without difficulty. We were able to clean up the fracture site. The fracture was in multiple different pieces involving the shaft and greater trochanter. Cables were placed to stabilize the fracture, 2 distally and then 1 around the calcar. We then were able to ream and place a 16 mm x 155 conical stem into the femoral canal. A cone body was placed, 19 mm, after reaming. Femur stability was good with a +8 mm 32 mm head. We then addressed the greater trochanter fracture with a invasive cardiovascular technologist plate and 2 cables. We then copiously irrigated the incision. We affixed the piriformis to the greater trochanter. The incision was closed in layers. The patient was then placed in a sterile dressing. She was then awakened and brought to PACU in good condition with a well perfused limb. The plan is to make the patient weight bearing as tolerated with a walker. She will be admitted to the orthopedic service, and likely need a group home facility. /[id number]/MODL MTDD
--- NOTE | 2017-03-26 17:13 | ASMTCMCOM ---
CM Note CM Note Notes: Pt accepted at [facility] per Cody. Cody reports they do not need pt off of sitter for 24 hours as they usually require as long as pt is alert and oriented. Pt dghtr Bambi and son Jair informed [facility] has no sitter/bed alarm and are in agreement for pt to d/c there. Also spoke w Bambi about transport options: she is willing to pay for WC van if it is a safe way for pt to transport (pt may require stretcher). CM to follow. D/c plan of care: [facility] when medically stable. Date Signed: 03/26/2017 05:13 PM Electronically Signed By:SCHUYLER Alcala
[2017-03-26] MEDS: CALCIUM CARBONATE 500 MG CHEWABLE TAB PO SCH ×2 (17:16→21:32)
--- NOTE | 2017-03-26 20:02 | GCON ---
[f rep st] CONSULTATION MEDICINE CONSULTATION DATE OF CONSULTATION: 03/26/2017 REASON FOR CONSULTATION: Medicine consult was requested in this postop patient due to low urine output and hypocalcemia. HISTORY: The patient is an 86-year-old female, who lives independently at [facility]. She had a mechanical fall in November 2016, and suffered a left pubic rami fracture. She was hospitalized and discharged to senior living facility and followed up with Orthopedic Surgery for ongoing degenerative disease of her left hip joint. She was admitted to the hospital on March 20 for an elective total hip arthroplasty. During her postop course, she fell out of bed and sustained a periprosthetic left femur fracture. She returned to the operating room on March 24 for ORIF of her left femur. She is now postop day 2. Her pain has been controlled, though her daughter complains that she has been very somnolent. Apparently, overnight she had poor urine output and required straight cath on 2 occasions, though actually her urine output has been adequate , it sounds like she had some mild urinary retention. In addition, she has been on maintenance fluids with half-normal saline and her sodium has trended down from 140 to 132. Her calcium has also trended down. Medicine consult was obtained due to her electrolyte abnormalities and difficulty with urination. The patient currently has no complaints. She has been afebrile. Her pain is controlled. She has no chest pain, shortness of breath, abdominal pain, nausea, vomiting, or diarrhea. She had a bowel movement this morning. She has been out of bed with therapy and seems to be having an uncomplicated postop recovery. PAST MEDICAL HISTORY: 1. Osteoarthritis. 2. Anxiety. 3. Depression. 4. Hypothyroidism. 5. Essential tremor. PAST SURGICAL HISTORY: 1. Right hip arthroplasty. 2. Left hip arthroplasty. 3. Left hip arthroplasty revision. MEDICATIONS: Please see [employer] for completed outpatient medication list. ALLERGIES: She has no known drug allergies. SOCIAL HISTORY: The patient lives independently at [facility]. Her daughter lives locally and is power of district attorney. She denies alcohol, tobacco or drug use. FAMILY HISTORY: Reviewed and noncontributory. REVIEW OF SYSTEMS: A 10-point review of systems was performed, and was negative except as per HPI. OBJECTIVE: VITAL SIGNS: Temperature is 36.9, blood pressure 123/63, heart rate 81, respiratory rate 14. She is 96% on 2 L of oxygen by nasal cannula. GENERAL: Patient is awake, alert, oriented, in no acute distress. HEENT: Head is atraumatic, normocephalic. Pupils equal, round, and reactive to light. Extraocular motion is intact. Oropharynx is clear. Mucous membranes are moist. NECK: Supple. There is no JVD. HEART: Regular rate and rhythm without murmur. LUNGS: Clear to auscultation bilaterally. ABDOMEN: Soft, mildly distended. Nontender with normoactive bowel sounds. EXTREMITIES: Her left lower extremity has significant edema and tenderness in the ailyn- incisional region with no obvious deformity or ecchymosis. The bandage is clean , dry, and intact. NEUROLOGIC: Grossly nonfocal. LABORATORY DATA: CBC reveals this morning a hemoglobin of 9 which is stable, hematocrit 26.2. Basic metabolic panel from yesterday shows a sodium of 132, calcium 7.5. Her other electrolytes are normal. Pelvis x-ray March 24, 2017, shows anatomic alignment of the proximal femur fracture post cerclage placement. ASSESSMENT AND PLAN: The patient is an 86-year-old female, who is admitted for total hip arthroplasty and required revision after suffering a femur fracture and is currently postop day 2 from her revision surgery. 1. Total hip arthroplasty, postop day 4 with periprosthetic femur open reduction internal fixation postop day 2. Her pain is fairly well controlled. I recommend scheduling Tylenol 1g q8h. I will add tramadol and continue low- dose oxycodone prn. DC IV Morphine as her RN notes she doesn't tolerate this well. I have also discontinued Flexeril and Phenergan due to the risk of sedation and untoward side effects. Further postop care per Orthopedics Surgery Service. 2. Acute blood loss anemia. Her hemoglobin is stable. Continue to trend. 3. Hyponatremia. I suspect she has poor free water management given her elderly age and recent use of half-normal saline. We will discontinue intravenous saline at this point and fluid restrict her. Recheck her sodium in the morning. 4. Hypocalcemia. Her ionized calcium is actually normal. I will give her some Tums and start calcium electrolyte replacement protocol. 5. Urinary retention. This is likely related to opioid use. She required 2 straight caths overnight, but has been voiding spontaneously today and her urine output is adequate, as above we will minimize opioids and continue as- needed bladder scans. 6. Deep venous thrombosis prophylaxis, Lovenox. 7. Code status. Patient is full code. 8. Disposition. The patient was admitted to inpatient status and will require ongoing hospitalization for pain management, acute physical therapy, occupational therapy. I suspect she will need senior living facility at discharge. Thank you for this consultation. We will continue to follow. Please call with any questions or concerns. /[id number]/MODL MTDD
[2017-03-26] MEDS: clonazePAM 0.5 MG TAB PO SCH (21:33)
[2017-03-27] MEDS: traMADol 50 MG TAB PO PRN ×2 (02:21→23:57)
[2017-03-27 04:16] LABS: HEMOGLOBIN 8.4 g/dL (12.6-16.3)
[2017-03-27 04:17] LABS: IONIZED CALCIUM 1.16 MMOL/L (1.12-1.30)
[2017-03-27 04:46] LABS: ANION GAP 6 mEq/L (8-16); CALCIUM 7.9 mg/dL (8.5-10.4); CARBON DIOXIDE 26 mEq/l (22-31); CHLORIDE 107 mEq/L (97-110); CREATININE 0.7 mg/dL (0.6-1.0); GLOMERULAR FILTRATION RATE > 60; GLUCOSE 88 mg/dL (70-100); POTASSIUM 4.2 mEq/L (3.5-5.2); SODIUM 139 mEq/L (134-144)
[2017-03-27] MEDS: LEVOTHYROXINE 88 MCG TAB PO SCH (05:45)
[2017-03-27] MEDS: ACETAMINOPHEN 500 MG TAB PO SCH ×3 (05:46→21:29)
[2017-03-27] MEDS: CALCIUM CARBONATE 500 MG CHEWABLE TAB PO SCH ×3 (10:06→21:30)
[2017-03-27] MEDS: FLUoxetine 20 MG CAP PO SCH (10:07)
[2017-03-27] MEDS: PROPRANOLOL HCL 20 MG TAB PO SCH ×2 (10:07→21:28)
[2017-03-27] MEDS: PRIMIDONE 50 MG TAB PO SCH ×2 (10:07→21:29)
[2017-03-27] MEDS: ENOXAPARIN 30 MG/0.3 ML SYR SC SCH (10:08)
[2017-03-27] MEDS: SENNOSIDES/DOCUSATE SODIUM TAB PO SCH ×2 (10:08→19:25)
--- NOTE | 2017-03-27 11:10 | HOSPPROG ---
Hospitalist Progress Note Assessment/Plan: Patient is an 86 y/o female who lives at [facility] and had a mechanical fall. She was admitted on Mar 20 for an elective total hip arthroplasty. During her postop course, she fell oob and sustained a periprosthetic left femur fx. Today is my first encounter w the patient. *total hip arthroplasty (POD # 4)with periprosthetic femur ORIF (POD #3) *ABLA -hgb and hct have trended down -will recheck in a.m. *Hyponatremia -resolved *hypocalcemia -ionized calcium stable *Urinary retention -resolved *Essential tremor -propranolol resumed *insomnia -did not sleep well last night -add prn med *dvt prophylaxis: LMWH *Plan : recheck labs in a.m., she will require a SNF Subjective: Montse said she is tried. Would like a nap. Objective: Vital Signs Temp Pulse Resp BP Pulse Ox 36.5 C 88 16 130/70 H 91 L 03/27/17 08:00 03/27/17 10:07 03/27/17 08:00 03/27/17 10:07 03/27/17 08:00 Laboratory Results 03/27/17 04:10 03/27/17 04:10 03/26/17 03/27/17 03/28/17 05:59 05:59 05:59 Intake Total 920 1800 Output Total 1050 1650 400 Balance -130 150 -400 - Physical Exam Constitutional: uncomfortable Eyes: PERRL Ears, Nose, Mouth, Throat: hearing normal Cardiovascular: regular rate and rhythym Respiratory: no respiratory distress Gastrointestinal: normoactive bowel sounds Skin: warm, other (left hip and upper thigh area w swelling) Musculoskeletal: generalized weakness Neurologic: AAOx3 Psychiatric: interacting appropriately, not anxious ICD10 Worksheet Patient Problems: Problems Problem Status Onset Primary localized osteoarthritis of left hip Acute chronic disease mgmt/transitional care Acute Inferior pubic ramus fracture Acute
[2017-03-27] MEDS: FAMOTIDINE 20 MG TAB PO SCH ×2 (12:35→21:29)
--- NOTE | 2017-03-27 18:05 | WOCRNPDOC ---
WOCRN Advanced Assessment Note - Skin Integrity Problem, Advanced Assess Left Hip Surgical Wound/Incision Dressing Type: Abdominal Pads, Tegaderm Film Dressing Description: Intact, Shadowed Closure Description: Pam, Approximated Exudate Amount: Moderate Exudate Characteristic(s): Serosanguinous Integumentary Issue Intervention: Dressing Changed Ailyn Wound Tissue: Contused Ailyn Wound Swelling: Severe Skin Integrity Problem Comment: Incisional vac built. Discussed with Dr. Almanza. Draped ailyn wound and to thigh. The foam was then bridged to left anterior thigh as well so trac pad does not pressurize incision line. Covered pam with adaptic touch and then black foam. x3 pieces of medium black simplace. Vac started at -75 mm Hg continuous suction without leaks. Do not increase suction past -75 mm Hg without consulting wound care. x2 RN's and 2x PARAOPTOMETRIC's assited with care. Dressing can stay on for 7 days: next change due . August d/c with dressing if recieving facility has a [employer] vac, but the vac machine currently in use cannot be sent with the patient. Wound care will follow.
[2017-03-27] MEDS: clonazePAM 0.5 MG TAB PO SCH (21:29)
[2017-03-27] MEDS: MELATONIN 3 MG TAB PO SCH (21:29)
[2017-03-28] MEDS: ONDANSETRON DISINTEGRATING 4 MG TAB PO PRN (02:35)
[2017-03-28 05:12] LABS: IONIZED CALCIUM 1.15 MMOL/L (1.12-1.30)
[2017-03-28 05:15] LABS: ABSOLUTE NRBC COUNT 0.02 10^3/uL (0-0.01); ADD DIFF? YES; ADD MORPH? NO; ADD SCAN? NO; ATYPICAL LYMPHOCYTE FLAG 0 (0-99); FRAGMENT RBC FLAG 0 (0-99); HEMATOCRIT 25.4 % (38.0-47.0); HEMOGLOBIN 8.6 g/dL (12.6-16.3); LEFT SHIFT FLG 30 (0-99); LIPEMIA HEMOLYSIS FLAG 90 (0-99); MEAN CELL HEMOGLOBIN 32.5 pg (27.9-34.1); MEAN CELL HEMOGLOBIN CONCENTR. 33.9 g/dL (32.4-36.7); MEAN CELL VOLUME 95.8 fL (81.5-99.8); MEAN PLATELET VOLUME 9.3 fL (8.7-11.7); NRBC-AUTO% 0.2 % (0.0-0.2); PLATELET CLUMPS FLAG 0 (0-99); PLATELET COUNT 242 10^3/uL (150-400); RED BLOOD CELL COUNT 2.65 10^6/uL (4.18-5.33); RED CELL DISTRIBUTION WIDTH 15.7 % (11.5-15.2)
[2017-03-28] MEDS: ACETAMINOPHEN 500 MG TAB PO SCH ×3 (05:39→20:33)
[2017-03-28] MEDS: LEVOTHYROXINE 88 MCG TAB PO SCH (05:39)
[2017-03-28 05:59] LABS: PLATELET ESTIMATE ADEQUATE (ADEQ); POLYCHROMASIA 1+
[2017-03-28] MEDS: CALCIUM CARBONATE 500 MG CHEWABLE TAB PO SCH ×3 (09:21→21:26)
[2017-03-28] MEDS: ENOXAPARIN 30 MG/0.3 ML SYR SC SCH (09:23)
[2017-03-28] MEDS: FLUoxetine 20 MG CAP PO SCH (09:24)
[2017-03-28] MEDS: FAMOTIDINE 20 MG TAB PO SCH ×2 (09:24→20:35)
[2017-03-28] MEDS: PRIMIDONE 50 MG TAB PO SCH ×2 (09:28→20:35)
--- NOTE | 2017-03-28 09:29 | HOSPPROG ---
Hospitalist Progress Note Assessment/Plan: Patient is an 86 y/o female who lives at [facility] and had a mechanical fall. She was admitted on Mar 20 for an elective total hip arthroplasty. During her postop course, she fell oob and sustained a periprosthetic left femur fx. *total hip arthroplasty (POD # 5)with periprosthetic femur ORIF (POD #4) -wound vac in place *ABLA -hgb and hct have trended down, but are stable *Hyponatremia -resolved *hypocalcemia -ionized calcium stable *Urinary retention -resolved *Essential tremor -propranolol resumed *insomnia -added Melatonin, patient said she slept well, but her son said she was awake most of the night -add prn med, Restoril *dvt prophylaxis: LMWH *Plan : reviewed her care w Dr Almanza/ will plan on keeping her for next day or so. Subjective: Montse is smiling and has no pain. Objective: Vital Signs Temp Pulse Resp BP Pulse Ox 36.8 C 84 24 H 156/69 H 98 03/28/17 04:00 03/28/17 04:00 03/28/17 04:00 03/28/17 04:00 03/28/17 04:00 Laboratory Results 03/28/17 04:50 03/27/17 04:10 03/27/17 03/28/17 03/29/17 05:59 05:59 05:59 Intake Total 1800 1325 Output Total 1650 2300 100 Balance 150 -975 -100 - Physical Exam Constitutional: no apparent distress, appears nourished, not in pain Eyes: PERRL Ears, Nose, Mouth, Throat: hearing normal Cardiovascular: regular rate and rhythym Respiratory: no respiratory distress Gastrointestinal: normoactive bowel sounds Skin: warm, other (left hip w wound vac in place) Neurologic: other (alert and oriented to herself and her son) Psychiatric: interacting appropriately, poor insight, poor judgement, poor memory ICD10 Worksheet Patient Problems: Problems Problem Status Onset Primary localized osteoarthritis of left hip Acute chronic disease mgmt/transitional care Acute Inferior pubic ramus fracture Acute
[2017-03-28] MEDS: SENNOSIDES/DOCUSATE SODIUM TAB PO SCH ×2 (10:38→21:09)
[2017-03-28] MEDS ORDERED: clonazePAM 0.5 MG TAB PO PRN (10:45)
--- NOTE | 2017-03-28 10:50 | SOAPPROG ---
SOAP Progress Note Assessment/Plan: Assessment: Patient is doing ok s/p L RAIN and periprosthetic femur ORIF 1) Pain management: pain is well controlled on oral pain meds 2) VTE ppx: recommend LMWH 3) Anemia: level is stable. 4) D/c planning: d/c to SNF vs inpatient rehab once logistics are sorted regarding wound vac. today vs tomorrow. appreciate case management's assistance 5) dementia: patient has baseline dementia, improving over course of hospital stay 6) hypocalcemia: stable per hospitalist. appreciate their assistance managing patient 7) hyponatremia: resolved 8) Activity precautions: anterior and posterior hip precautions. WBAT with FWW. must use large ABduction pillow. Plan: 03/21/17 10:55 03/26/17 11:19 03/28/17 10:47 Subjective: Montse is doing ok this morning, some confusion overnight. Objective: Vital Signs Temp Pulse Resp BP Pulse Ox 36.8 C 84 24 H 156/69 H 98 03/28/17 04:00 03/28/17 04:00 03/28/17 04:00 03/28/17 04:00 03/28/17 04:00 Laboratory Results 03/28/17 04:50 03/27/17 04:10 03/27/17 03/28/17 03/29/17 05:59 05:59 05:59 Intake Total 1800 1325 Output Total 1650 2300 100 Balance 150 -975 -100 LLE: wound vac in place, mild amount of drainage ICD10 Worksheet Patient Problems: Problems Problem Status Onset Primary localized osteoarthritis of left hip Acute chronic disease [facility]/transitional care Acute Inferior pubic ramus fracture Acute
[2017-03-28] MEDS: PROPRANOLOL HCL 20 MG TAB PO SCH ×2 (12:12→20:36)
--- NOTE | 2017-03-28 12:12 | ASMTCMCOM ---
CM Note CM Note Notes: Updates sent to [facility], pt now has wound vac so Cody states they will review the clinicals and determine if they can still take pt. MARIE odell MD wants pt to have wound vac 1 week, [facility] informed. Likely d/c in a couple days. Updated pt dghtr. CM to follow. D/c plan of care: SNF when medically stable. Ideally [facility] can still accept. Date Signed: 03/28/2017 12:12 PM Electronically Signed By:SCHUYLER Alcala
[2017-03-28] MEDS: oxyCODONE IR 5 MG TAB PO PRN (18:24)
[2017-03-28] MEDS: MELATONIN 3 MG TAB PO SCH (20:35)
[2017-03-28] MEDS: TEMAZEPAM 15 MG CAP PO PRN (22:27)
[2017-03-29] MEDS: oxyCODONE IR 5 MG TAB PO PRN ×3 (01:01→21:19)
[2017-03-29] MEDS: ACETAMINOPHEN 500 MG TAB PO SCH ×3 (06:18→20:07)
[2017-03-29] MEDS: LEVOTHYROXINE 88 MCG TAB PO SCH (06:20)
[2017-03-29] MEDS: ENOXAPARIN 30 MG/0.3 ML SYR SC SCH (09:22)
[2017-03-29] MEDS: PRIMIDONE 50 MG TAB PO SCH ×2 (09:29→20:11)
[2017-03-29] MEDS: FAMOTIDINE 20 MG TAB PO SCH ×2 (09:29→20:10)
[2017-03-29] MEDS: FLUoxetine 20 MG CAP PO SCH (09:29)
[2017-03-29] MEDS: PROPRANOLOL HCL 20 MG TAB PO SCH ×2 (09:29→20:10)
[2017-03-29] MEDS: CALCIUM CARBONATE 500 MG CHEWABLE TAB PO SCH ×3 (09:30→20:07)
[2017-03-29] MEDS: SENNOSIDES/DOCUSATE SODIUM TAB PO SCH ×2 (09:31→20:10)
--- NOTE | 2017-03-29 11:09 | ASMTCMCOM ---
CM Note CM Note Notes: Pt likely d/c Saturday. Cody w [facility] arranged to have pt wound vac delivered to [facility] instead of . [place] will be delivered by [facility] on 03/30/17 by 13:00. Canister and dressing changes will also be delivered so they will need to go w pt. [facility] #[phone] order #[id number]. Enida will be RN on intake she can be reached at [phone]. CM to follow. D/c plan of care: [facility] when medically stable. Date Signed: 03/29/2017 11:09 AM Electronically Signed By:SCHUYLER Alcala
--- NOTE | 2017-03-29 15:09 | SOAPPROG ---
SOAP Progress Note Assessment/Plan: Assessment: Patient is doing ok s/p revision L RAIN and periprosthetic femur ORIF 1) Pain management: pain is well controlled on oral pain meds 2) VTE ppx: recommend LMWH 3) Anemia: level is stable. 4) D/c planning: d/c to SNF once logistics are sorted regarding wound vac. today vs tomorrow. appreciate case management's assistance 5) dementia: patient has baseline dementia, improving over course of hospital stay 6) hypocalcemia: stable per hospitalist. appreciate their assistance managing patient 7) hyponatremia: resolved 8) Activity precautions: anterior and posterior hip precautions. WBAT with FWW. must use large ABduction pillow. 9) drowsiness this morning: patient received restoril last night to help her sleep. It was successful, but maybe sedated patient too well. slowly metabolizing. Consider ambien for sleep aid instead of restoril if needed tonight. Plan: 03/21/17 10:55 03/26/17 11:19 03/28/17 10:47 03/29/17 15:06 Subjective: Montse is sleeping comfortably, but difficult to arouse. most likely due to restoril dose last night. Objective: Vital Signs Temp Pulse Resp BP Pulse Ox 37.1 C 74 18 112/48 L 92 03/29/17 12:00 03/29/17 12:00 03/29/17 12:00 03/29/17 12:00 03/29/17 12:00 Laboratory Results 03/28/17 04:50 03/27/17 04:10 03/28/17 03/29/17 03/30/17 05:59 05:59 05:59 Intake Total 1325 1040 Output Total 2300 400 300 Balance -975 640 -300 LLE: anterior incision is clean and dry, wound vac applied to posterior incision , ICD10 Worksheet Patient Problems: Problems Problem Status Onset Primary localized osteoarthritis of left hip Acute chronic disease mgmt/transitional care Acute Inferior pubic ramus fracture Acute
--- NOTE | 2017-03-29 15:45 | HOSPPROG ---
Hospitalist Progress Note Assessment/Plan: Patient is an 86 y/o female who lives at [facility] and had a mechanical fall. She was admitted on Mar 20 for an elective total hip arthroplasty. During her postop course, she fell oob and sustained a periprosthetic left femur fx. *total hip arthroplasty (POD # 6)with periprosthetic femur ORIF (POD #5) -wound vac in place *ABLA -hgb and hct have trended down, but are stable *Hyponatremia -resolved *hypocalcemia -ionized calcium stable *Urinary retention -resolved *Essential tremor -propranolol resumed *insomnia -resolved w Restoril, but patient was very sleepy this morning. Slept 9 hours. -will write orders as to how late that can be given *dvt prophylaxis: LMWH *Plan : hopefully, can dc soon. Saw her twice today, per her son, she is much clearer. Subjective: Montse is very sleepy, has no complaints. Objective: Vital Signs Temp Pulse Resp BP Pulse Ox 37.1 C 74 18 112/48 L 92 03/29/17 12:00 03/29/17 12:00 03/29/17 12:00 03/29/17 12:00 03/29/17 12:00 Laboratory Results 03/28/17 04:50 03/27/17 04:10 03/28/17 03/29/17 03/30/17 05:59 05:59 05:59 Intake Total 1325 1040 Output Total 2300 400 300 Balance -975 640 -300 - Physical Exam Constitutional: no apparent distress, appears nourished, not in pain Ears, Nose, Mouth, Throat: hard of hearing Cardiovascular: regular rate and rhythym Respiratory: no respiratory distress Gastrointestinal: normoactive bowel sounds Skin: warm Musculoskeletal: generalized weakness Psychiatric: interacting appropriately, other (drowsy) ICD10 Worksheet Patient Problems: Problems Problem Status Onset Primary localized osteoarthritis of left hip Acute chronic disease mgmt/transitional care Acute Inferior pubic ramus fracture Acute
--- NOTE | 2017-03-29 17:18 | ASMTCMCOM ---
CM Note CM Note Notes: Late today spoke w Cody at [facility] who reports they are on lock down due to influenza cannot take pt. They will re-assess after [place] and may be on lock down for a week. [facility] cancelled [facility] w[facility] delivery. Date Signed: 03/29/2017 05:18 PM Electronically Signed By:SCHUYLER Alcala
--- NOTE | 2017-03-29 17:40 | ASMTCMCOM ---
CM Note CM Note Notes: Pt yocasta Adam updated on [facility] lockdown, family will inform CM of alternative SNF choice tomorrow. SNF will need to order wound vac which can take some time so d/c date which was likely tomorrow may be delayed. Date Signed: 03/29/2017 05:40 PM Electronically Signed By:SCHUYLER Alcala
[2017-03-29] MEDS: TEMAZEPAM 15 MG CAP PO PRN (20:11)
[2017-03-30] MEDS: oxyCODONE IR 5 MG TAB PO PRN ×4 (03:29→22:08)
[2017-03-30] MEDS: LEVOTHYROXINE 88 MCG TAB PO SCH (05:48)
[2017-03-30] MEDS: ACETAMINOPHEN 500 MG TAB PO SCH ×3 (05:48→22:06)
[2017-03-30 06:51] LABS: ANION GAP 7 mEq/L (8-16); CALCIUM 8.1 mg/dL (8.5-10.4); CARBON DIOXIDE 24 mEq/l (22-31); CHLORIDE 106 mEq/L (97-110); CREATININE 0.7 mg/dL (0.6-1.0); GLOMERULAR FILTRATION RATE > 60; GLUCOSE 90 mg/dL (70-100); POTASSIUM 3.8 mEq/L (3.5-5.2); SODIUM 137 mEq/L (134-144)
--- NOTE | 2017-03-30 08:16 | HOSPPROG ---
Hospitalist Progress Note Assessment/Plan: Patient is an 86 y/o female who lives at [facility] and had a mechanical fall. She was admitted on Mar 20 for an elective total hip arthroplasty. During her postop course, she fell oob and sustained a periprosthetic left femur fx. *total hip arthroplasty (POD # 7)with periprosthetic femur ORIF (POD #6) -wound vac in place *ABLA -hgb and hct have trended down, but are stable *Hyponatremia -resolved *hypocalcemia -ionized calcium stable *Urinary retention -resolved *Essential tremor -propranolol resumed *insomnia -resolved w Restoril, *dvt prophylaxis: LMWH *Plan : hopefully, can dc soon. [facility] is on lock down due to the influenza Subjective: Montse has some left sided hip pain. Otherwise, doing well. Objective: Vital Signs Temp Pulse Resp BP Pulse Ox 36.7 C 79 16 144/70 H 94 03/30/17 07:31 03/30/17 07:31 03/30/17 07:31 03/30/17 07:31 03/30/17 07:31 Laboratory Results 03/28/17 04:50 03/30/17 06:15 03/29/17 03/30/17 03/31/17 05:59 05:59 05:59 Intake Total 1040 1500 Output Total 400 1400 Balance 640 100 - Physical Exam Constitutional: no apparent distress, appears nourished Eyes: PERRL Ears, Nose, Mouth, Throat: hearing normal Cardiovascular: regular rate and rhythym Respiratory: no respiratory distress Skin: other (left hip w wound vac in place) Musculoskeletal: generalized weakness Neurologic: other (alert, oriented, much more interactive this morning) Psychiatric: interacting appropriately, poor memory ICD10 Worksheet Patient Problems: Problems Problem Status Onset Primary localized osteoarthritis of left hip Acute chronic disease mgmt/transitional care Acute Inferior pubic ramus fracture Acute
[2017-03-30] MEDS: ENOXAPARIN 30 MG/0.3 ML SYR SC SCH (08:21)
[2017-03-30] MEDS: SENNOSIDES/DOCUSATE SODIUM TAB PO SCH ×2 (08:21→22:05)
[2017-03-30] MEDS: FAMOTIDINE 20 MG TAB PO SCH ×2 (08:22→22:08)
[2017-03-30] MEDS: CALCIUM CARBONATE 500 MG CHEWABLE TAB PO SCH ×3 (08:22→22:09)
[2017-03-30] MEDS: PRIMIDONE 50 MG TAB PO SCH ×2 (08:22→22:08)
[2017-03-30] MEDS: FLUoxetine 20 MG CAP PO SCH (08:23)
[2017-03-30] MEDS: PROPRANOLOL HCL 20 MG TAB PO SCH ×2 (08:23→22:07)
[2017-03-30] MEDS: ONDANSETRON DISINTEGRATING 4 MG TAB PO PRN ×2 (11:09→21:58)
--- NOTE | 2017-03-30 12:54 | PDIAF ---
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, hyponatremia, anemia Code Status: Full Code - Medication Management Discharge Medications: Medications to Continue on Transfer Fluoxetine HCl [Prozac 40 mg] 40 mg PO DAILY 11/12/16 [Last Taken 03/20/17 08:00 ] Levothyroxine [Synthroid 88 mcg (*)] 88 mcg PO DAILY06 11/12/16 [Last Taken 08:00] Primidone 50 mg PO BID 11/12/16 [Last Taken 03/20/17 08:00] Propranolol HCl [Inderal 20mg (*)] 20 mg PO BID 11/12/16 [Last Taken 03/20/17 08 :00] clonazePAM [Klonopin (*)] 0.25 mg PO HS 02/14/17 [Last Taken 03/19/17] Acetaminophen [Tylenol ES 500 mg (*)] 1,000 mg PO Q8H tab 03/30/17 [Last Taken Unknown] Calcium Carbonate [Tums 500MG (*)] 500 mg PO TID tab.chew 03/30/17 [Last Taken Unknown] Enoxaparin [Lovenox] 30 mg SC DAILY syr 03/30/17 [Last Taken Unknown] Ondansetron Odt [Zofran Odt 4 mg (*)] 4 mg PO Q6HRS PRN tab 03/30/17 [Last Taken Unknown] Polyethylene Glycol 3350 [Miralax 17 gm (*)] 17 gm PO DAILY PRN pkt 03/30/17 [ Last Taken Unknown] Sennosides/Docusate Sodium [Senokot-S] 1 - 2 tab PO BID tab 03/30/17 [Last Taken Unknown] Temazepam [Restoril 15 MG (*)] 15 mg PO HS PRN cap 03/30/17 [Last Taken Unknown ] celeCOXIB [Celebrex (*)] 200 mg PO DAILY cap 03/30/17 [Last Taken Unknown] oxyCODONE IR [Oxycodone Ir (*)] 2.5 - 5 mg PO Q6H PRN tab 03/30/17 [Last Taken Unknown] Discharge Medications: Refer to the Discharge Home Medication list for PRN reason. - Orders Services needed: Physical Therapy, Occupational Therapy Diet Recommendation: no restrictions on diet Diet Texture: Regular Texture Diet Additional: oint Protocol-Hip Replacement. Follow up with Dr. Molina office as scheduled. After surgery instructions: Take Aspirin 325mg by mouth once daily for 3 weeks (helps to prevent blood clots). Wear thigh high ROLLY hose on both legs during the daytime for 2 weeks (helps to prevent blood clots and decrease swelling in the surgical leg). It is ok to remove ROLLY hose at night time to give your legs a break. It is common for swelling and bruising to occur in the entire surgical leg even extending to the foot, if concerned call Dr. Monroy office [phone]. Weight bearing as tolerated. Use a walker for 14+ days. Do exercises in the book 2-3 times a day. Ice at least 3-5 times a day for 30 minutes each time, if not more often. ~~If you have further questions that are not addressed here, please look at the information packet handed to you at the preop appointment. ~Most will be answered on the FAQs, after surgery instructions and incision care pages. ~You may also call Dr. Tracy hutton with questions as well. *IF YOU HAVE A LIFE THREATENING EMERGENCY, CALL 911. FOR NON-LIFE THREATENING ISSUES, PLEASE CALL DR. ALMANZA S OFFICE FIRST. A PHYSICIAN IS LENS INSPECTOR 29/10. Incision/Dressing Care: May shower tomorrow,. Incision dressing is waterproof. Keep the incision (dorsey) dressing clean and dry. If the incision dressing gets soiled or wet underneath, change dressing to the dressing given to you by the hospital. (dorsey dressing will turn black if drainage occurs). Remove incision dressing (dorsey one) two weeks after surgery. ~Leave steri strips alone. ~They will fall off on their own. Do not have anyone else remove the incision dressing prior to the stated recommendation (2 weeks after surgery). ~If there are incision concerns, contact Dr. Monroy office. ~(Kellee or Dr. Almanza may remove earlier if concerns arise). If incision site (dorsey dressing) has drainage, call Dr. Monroy office, . ~Kellee and Dr. Almanza may ask you to come into the office for further evaluation. BUSHRA TENA ONCE MORE MOBILE - Labs/Radiology BMP Date: 04/02/17 (weekly till stable) CBC w/diff Date: 04/02/17 (weekly till stable) - Follow Up Care Current Providers and Referrals: Selene Guillory MD [Primary Care Provider] - Kellee Almanza PA [Physician Glost Tile Sorter] - 04/18/17 11:00 am
[2017-03-30] MEDS: TEMAZEPAM 15 MG CAP PO PRN (23:41)
[2017-03-31] MEDS: oxyCODONE IR 5 MG TAB PO PRN ×4 (04:47→21:12)
[2017-03-31] MEDS: LEVOTHYROXINE 88 MCG TAB PO SCH (05:09)
[2017-03-31] MEDS: ACETAMINOPHEN 500 MG TAB PO SCH ×3 (05:09→21:11)
[2017-03-31] MEDS: ONDANSETRON DISINTEGRATING 4 MG TAB PO PRN (05:09)
[2017-03-31] MEDS: CALCIUM CARBONATE 500 MG CHEWABLE TAB PO SCH ×3 (09:46→21:11)
[2017-03-31] MEDS: PRIMIDONE 50 MG TAB PO SCH ×2 (09:47→21:12)
[2017-03-31] MEDS: FLUoxetine 20 MG CAP PO SCH (09:47)
[2017-03-31] MEDS: SENNOSIDES/DOCUSATE SODIUM TAB PO SCH ×2 (09:47→21:10)
[2017-03-31] MEDS: FAMOTIDINE 20 MG TAB PO SCH ×2 (09:47→21:12)
[2017-03-31] MEDS: PROPRANOLOL HCL 20 MG TAB PO SCH ×2 (09:47→21:11)
[2017-03-31] MEDS: ENOXAPARIN 30 MG/0.3 ML SYR SC SCH (09:54)
--- NOTE | 2017-03-31 10:59 | HOSPPROG ---
Hospitalist Progress Note Assessment/Plan: Patient is an 86 y/o female who lives at [facility] and had a mechanical fall. She was admitted on Mar 20 for an elective total hip arthroplasty. During her postop course, she fell oob and sustained a periprosthetic left femur fx. *total hip arthroplasty (POD # 8)with periprosthetic femur ORIF (POD #7) -wound vac in place -left leg swelling much improved *ABLA -hgb and hct have trended down, but are stable *Hyponatremia -resolved *hypocalcemia -ionized calcium stable *Urinary retention -resolved *Essential tremor -propranolol resumed *insomnia -resolved w Restoril, *dvt prophylaxis: LMWH *Plan : dc tomorrow to . [facility] wants to be sure she doesn't require a sitter, no sitter since midnight last night. Subjective: Montse has no complaints, doesn't like the abductor wedge. Objective: Vital Signs Temp Pulse Resp BP Pulse Ox 36.8 C 78 18 157/76 H 95 03/31/17 07:17 03/31/17 07:17 03/31/17 07:17 03/31/17 07:17 03/31/17 07:17 Laboratory Results 03/28/17 04:50 03/30/17 06:15 03/30/17 03/31/17 04/01/17 05:59 05:59 05:59 Intake Total 1500 425 180 Output Total 1400 800 125 Balance 100 -375 55 - Physical Exam Constitutional: no apparent distress, appears nourished, not in pain Eyes: PERRL Ears, Nose, Mouth, Throat: hearing normal Cardiovascular: regular rate and rhythym Respiratory: no respiratory distress Gastrointestinal: normoactive bowel sounds Skin: warm, other (left leg much improved, swelling has decreased) Musculoskeletal: generalized weakness ICD10 Worksheet Patient Problems: Problems Problem Status Onset Primary localized osteoarthritis of left hip Acute chronic disease mgmt/transitional care Acute Inferior pubic ramus fracture Acute
--- NOTE | 2017-03-31 11:22 | ASMTCMCOM ---
CM Note CM Note Notes: Patient is going to [facility] due to [facility] being on lockdown for the flu. [facility] cannot take her today as a result of [facility] not having documentation on the exact time the sitter was discharged and the contract with [facility] needing to be changed to [facility]. Patient has a wound vac in her room but it is contracted with [facility] for [facility]. Molina also said they did not have enough staff today to feel safe with patient who had needed a sitter. [facility] will take patient tomorrow and all coordinating needs to be done with Molina. Ferminmike has contacted [facility] to get wound vac changed to [facility]. CM will follow. Date Signed: 03/31/2017 11:22 AM Electronically Signed By:Evette Martinez LCSW
--- NOTE | 2017-03-31 16:28 | SOAPPROG ---
SOAP Progress Note Assessment/Plan: Assessment: s/p L RAIN with rev for fx that occurred after falling out of bed, doing well, better cognition though still confused has been without sitter for greater thatn 24hrs sitter dc'd 1300 on 03/30 ok to work with PT WBAT with walker Pt is on lovenox wound vac for lovenox drainage which is minimal will dc wound vac04/02. dc to SNF tomorrow Plan: 03/26/17 20:58 03/31/17 16:25 03/31/17 16:27 Objective: Vital Signs Temp Pulse Resp BP Pulse Ox 36.9 C 88 16 158/76 H 93 03/31/17 15:54 03/31/17 15:54 03/31/17 15:54 03/31/17 15:54 03/31/17 15:54 Laboratory Results 03/28/17 04:50 03/30/17 06:15 03/30/17 03/31/17 04/01/17 05:59 05:59 05:59 Intake Total 1500 425 180 Output Total 1400 800 225 Balance 100 -375 -45 ICD10 Worksheet Patient Problems: Problems Problem Status Onset Primary localized osteoarthritis of left hip Acute chronic disease [facility]/transitional care Acute Inferior pubic ramus fracture Acute
[2017-03-31] MEDS: TEMAZEPAM 15 MG CAP PO PRN (21:12)
[2017-04-01] MEDS: oxyCODONE IR 5 MG TAB PO PRN ×3 (02:43→13:46)
[2017-04-01 03:58] VITALS: RESP 18
[2017-04-01] MEDS: ACETAMINOPHEN 500 MG TAB PO SCH ×2 (05:57→13:46)
[2017-04-01] MEDS: LEVOTHYROXINE 88 MCG TAB PO SCH (05:57)
[2017-04-01] MEDS: PRIMIDONE 50 MG TAB PO SCH (08:16)
[2017-04-01] MEDS: FLUoxetine 20 MG CAP PO SCH (08:17)
[2017-04-01] MEDS: FAMOTIDINE 20 MG TAB PO SCH (08:17)
[2017-04-01] MEDS: PROPRANOLOL HCL 20 MG TAB PO SCH (08:17)
[2017-04-01] MEDS: CALCIUM CARBONATE 500 MG CHEWABLE TAB PO SCH (08:18)
[2017-04-01] MEDS: SENNOSIDES/DOCUSATE SODIUM TAB PO SCH (08:18)
[2017-04-01] MEDS: ENOXAPARIN 30 MG/0.3 ML SYR SC SCH (08:20)
[2017-04-01] MEDS: POLYETHYLENE GLYCOL 3350 17 GM PKT PO PRN (08:20)
--- NOTE | 2017-04-01 11:18 | PDIAF ---
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, hyponatremia, anemia Code Status: Full Code - Medication Management Discharge Medications: Medications to Continue on Transfer Fluoxetine HCl [Prozac 40 mg] 40 mg PO DAILY 11/12/16 [Last Taken 03/20/17 08:00 ] Levothyroxine [Synthroid 88 mcg (*)] 88 mcg PO DAILY06 11/12/16 [Last Taken 08:00] Primidone 50 mg PO BID 11/12/16 [Last Taken 03/20/17 08:00] Propranolol HCl [Inderal 20mg (*)] 20 mg PO BID 11/12/16 [Last Taken 03/20/17 08 :00] clonazePAM [Klonopin (*)] 0.25 mg PO HS 02/14/17 [Last Taken 03/19/17] Acetaminophen [Tylenol ES 500 mg (*)] 1,000 mg PO Q8H tab 03/30/17 [Last Taken Unknown] Calcium Carbonate [Tums 500MG (*)] 500 mg PO TID tab.chew 03/30/17 [Last Taken Unknown] Enoxaparin [Lovenox] 30 mg SC DAILY syr 03/30/17 [Last Taken Unknown] Ondansetron Odt [Zofran Odt 4 mg (*)] 4 mg PO Q6HRS PRN tab 03/30/17 [Last Taken Unknown] Polyethylene Glycol 3350 [Miralax 17 gm (*)] 17 gm PO DAILY PRN pkt 03/30/17 [ Last Taken Unknown] Sennosides/Docusate Sodium [Senokot-S] 1 - 2 tab PO BID tab 03/30/17 [Last Taken Unknown] Temazepam [Restoril 15 MG (*)] 15 mg PO HS PRN cap 03/30/17 [Last Taken Unknown ] celeCOXIB [Celebrex (*)] 200 mg PO DAILY cap 03/30/17 [Last Taken Unknown] oxyCODONE IR [Oxycodone Ir (*)] 2.5 - 5 mg PO Q6H PRN tab 03/30/17 [Last Taken Unknown] Discharge Medications: Refer to the Discharge Home Medication list for PRN reason. - Orders Services needed: Physical Therapy, Occupational Therapy Diet Recommendation: no restrictions on diet Diet Texture: Regular Texture Diet Additional: oint Protocol-Hip Replacement. Follow up with Dr. Tracy hutton as scheduled. After surgery instructions: Take lovenox 30mg once daily for 3 weeks (helps to prevent blood clots). Wear thigh high ROLLY hose on both legs during the daytime for 2 weeks (helps to prevent blood clots and decrease swelling in the surgical leg). It is ok to remove ROLLY hose at night time to give your legs a break. It is common for swelling and bruising to occur in the entire surgical leg even extending to the foot, if concerned call Dr. Monroy office [phone]. Weight bearing as tolerated. Use a walker. Do exercises in the book 2-3 times a day. Ice at least 3-5 times a day for 30 minutes each time, if not more often. ~~If you have further questions that are not addressed here, please look at the information packet handed to you at the preop appointment. ~Most will be answered on the FAQs, after surgery instructions and incision care pages. ~You may also call Dr. Tracy hutton with questions as well. *IF YOU HAVE A LIFE THREATENING EMERGENCY, CALL 911. FOR NON-LIFE THREATENING ISSUES, PLEASE CALL DR. PITTMAN OFFICE FIRST. A PHYSICIAN IS PLASTER BLOCK LAYER 29/10. Incision/Dressing Care: May shower tomorrow,. Incision dressing is waterproof. Keep the incision (dorsey) dressing clean and dry. If the incision dressing gets soiled or wet underneath, change dressing to the dressing given to you by the hospital. (dorsey dressing will turn black if drainage occurs). Remove incision dressing (dorsey one) two weeks after surgery. ~Leave steri strips alone. ~They will fall off on their own. remove wound vac 04/03/17. Do not have anyone else remove the incision dressing prior to the stated recommendation (2 weeks after surgery). ~If there are incision concerns, contact Dr. Monroy office. ~(Kellee or Dr. Almanza may remove earlier if concerns arise). If incision site (dorsey dressing) has drainage, call Dr. Monroy office, . ~Kellee and Dr. Almanza may ask you to come into the office for further evaluation - Labs/Radiology BMP Date: 04/02/17 (weekly till stable) CBC w/diff Date: 04/02/17 (weekly till stable) - Follow Up Care Current Providers and Referrals: Selene Guillory MD [Primary Care Provider] - Kellee Almanza PA [Physician Inspection Clerk] - 04/18/17 11:00 am
[2017-04-01 11:26] VITALS: BP 150/91; PULSE 82; TEMP 97.5; O2SAT 92
--- NOTE | 2017-04-01 13:05 | ASMTCMCOM ---
CM Note CM Note Notes: Pt medically stable for d/c to [facility]. Pt has been off sitter for 24 hours, Dillon w updated. Dillon reports pt will need to d/c w this [employer] wound vac here and she will make sure it gets put in name. Stretcher transport scheduled for 15:00, pt dghtr Bambi updated. Orders sent in [employer]. Date Signed: 04/01/2017 01:05 PM Electronically Signed By:SCHUYLER Alcala
--- NOTE | 2017-04-01 14:40 | ASDISCHSUM ---
Discharge Information Plan Status:SNF Medically Cleared to Leave: Discharge Date:04/01/2017 02:36 PM D/C Disposition:Longterm Facility ADT D/C Disposition:Longterm Facility Projected Discharge Date:03/30/2017 11:00 AM Transportation at D/C:ALS/BLS Discharge Delay Reason: Follow-Up Date:03/30/2017 11:00 AM Discharge Slot: Final Diagnosis: Placement Information Referral Type:*Home Health Care Services Referral ID:[id number] Provider Name: Address 1: Phone Number: Address 2: Fax Number: City: Selection Factors: State: Referral Type:*Long Term/SNF Referral ID:[id number] Provider Name:[facility] Address 1:[address] Address 2: City:[place] Selection Factors: State:[place] Patient Contact Information Contact Name:TU Relationship:Daughter Address:[address] City:[place] Alternate Phone: State/Zip Code:[place] [address] Email: Financial Information Financial Class: Primary Plan Desc:MEDICARE INPATIENT Primary Plan Number:[id number] Secondary [facility] Desc[facility] Secondary Plan Number:[id number] Assessment Information [facility] CM Progress Note CM Note CM Note Notes: Patient has some confusion post op hip. per therapy may need SNF. The family wishes to avoid SNF as that contributes to her confusion. It is hopeful that patient may dc to home with daughter and 24 hour supervision this weekend if possible. She lives at [facility] and would likely benefit from HHC therapy with RN and PT. She has used [facility] in past. referral placed. CM to follow. Plan Home with 24 hour family supervision and HHC. Date Signed: 03/21/2017 11:27 AM Electronically Signed By:Aleja Castro RN BC CM Progress Note CM Note CM Note Notes: Pt fell out of bed last night and sustained L femur fx. Will need another surgery for L RAIN revision. Was set up with [facility] when cleared for d/,c however, given her need for another surgery will review therapy input after the survery to determine if pt will need a higher level of care at d/c (SNF/IR). Date Signed: 03/23/2017 01:43 PM Electronically Signed By:SCHUYLER Lombardo BC CM Progress Note CM Note CM Note Notes: Chart reviewed. Spoke with MD. Per therapies patient will need SNF for disposition at this point in time. [facility] Awaiting notification. CM to follow. Date Signed: 03/25/2017 02:09 PM Electronically Signed By:Aleja Castro RN BC CM Progress Note CM Note CM Note Notes: Pt accepted at [facility] per Cody. Cody reports they do not need pt off of sitter for 24 hours as they usually require as long as pt is alert and oriented. Pt dghtr Gopi Jair informed [facility] has no sitter/bed alarm and are in agreement for pt to d/c there. Also spoke w Bambi about transport options: she is willing to pay for WC van if it is a safe way for pt to transport (pt may require stretcher). CM to follow. D/c plan of care: [facility] SNF when medically stable. Date Signed: 03/26/2017 05:13 PM Electronically Signed By:SCHUYLER Alcala [facility] CM Progress Note CM Note CM Note Notes: Updates sent to [facility], pt now has wound vac so Cody states they will review the clinicals and determine if they can still take pt. MARIE odell MD wants pt to have wound vac 1 week, [facility] informed. Likely d/c in a couple days. Updated pt dghtr. CM to follow. D/c plan of care: SNF when medically stable. Ideally [facility] can still accept. Date Signed: 03/28/2017 12:12 PM Electronically Signed By:SCHUYLER Alcala [facility] CM Progress Note CM Note CM Note Notes: Pt likely d/c Saturday. [facility] Lr arranged to have pt wound vac delivered to [facility] instead of . [place] will be delivered by [facility] on 03/30/17 by 13:00. Canister and dressing changes will also be delivered so they will need to go w pt. [facility] #[phone] order #[id number]. Faraz will be RN on intake she can be reached at [phone]. CM to follow. D/c plan of care: [facility] when medically stable. Date Signed: 03/29/2017 11:09 AM Electronically Signed By:SCHUYLER Alcala [facility] CM Progress Note CM Note CM Note Notes: Late [facility] due to influenza cannot take pt. They will re-assess after [place] and may be on lock down for a week. Cody cancelled [facility] wv delivery. Date Signed: 03/29/2017 05:18 PM Electronically Signed By:SCHUYLER Alcala [facility] CM Progress Note CM Note CM Note Notes: Pt yocasta Adam updated on lockdown, family will inform CM of alternative SNF choice tomorrow. SNF will need to order wound vac which can take some time so d/c date which was likely tomorrow may be delayed. Date Signed: 03/29/2017 05:40 PM Electronically Signed By:SCHUYLER Alcala Case Management Discharge Plan Note Case Management Discharge Discharge Order Complete? Answers: No Transport will Pick (Date 03/30/2017 03:00 PM & Time) Family Notified Answers: Yes Discharge Comments Notes: Pt's d/c to [facility] cancelled. Pt has a sitter and will need to be without for 24 hrs before will accept her. Spoke with pt's daughter who will not be available tomorrow and is concerned about pt being transferred to alone 2/2 pt's dementia. Daughter would prefer to defer d/c until Saturday on when she will be available. Sitter to be discontinued tomorrow. Date Signed: 03/30/2017 03:31 PM Electronically Signed By:SCHUYLER Lombardo [facility] CM Progress Note CM Note CM Note Notes: Patient is going to [facility] due to [facility] being on lockdown for the flu. [facility] cannot take her today as a result of [facility] not having documentation on the exact time the sitter was discharged and the contract with [facility] needing to be changed to [facility]. Patient has a wound vac in her room but it is contracted with [facility] for [facility]. Molina also said they did not have enough staff today to feel safe with patient who had needed a sitter. [facility] will take patient tomorrow and all coordinating needs to be done with Molina. Molina has contacted [facility] to get wound vac changed to [facility]. CM will follow. Date Signed: 03/31/2017 11:22 AM Electronically Signed By:Evette Martinez LCSW [facility] CM Progress Note CM Note CM Note Notes: Pt medically stable for d/c to [facility]. Pt has been off sitter for 24 hours, Dillon mark updated. Dillon reports pt will need to d/c w this [employer] wound vac here and she will make sure it gets put in name. Stretcher transport scheduled for 15:00, pt dghtr Bambi updated. Orders sent in [employer]. Date Signed: 04/01/2017 01:05 PM Electronically Signed By:SCHUYLER Alcala Intervention Information
== END 2017-04-01 14:36 | DRG 467 ==
LOC: F3N 10:18
PROVIDERS: ADMIT Orthopaedic Surgery; ATTEND Orthopaedic Surgery
PROC: 30233N1 Transfusion of Nonautologous Red Blood Cells into Peripheral Vein, Percutaneous Approach (ICD-10-PCS; principal; 2017-03-20 12:15)
PROC: 0SRB02Z Replacement of Left Hip Joint with Metal on Polyethylene Synthetic Substitute, Open Approach (ICD-10-PCS; principal; 2017-03-20 12:15)
PROC: 0SRS01Z Replacement of Left Hip Joint, Femoral Surface with Metal Synthetic Substitute, Open Approach (ICD-10-PCS; 2017-03-24)
PROC: 0SWS0JZ Revision of Synthetic Substitute in Left Hip Joint, Femoral Surface, Open Approach (ICD-10-PCS; 2017-03-24)
DX: M16.12 Unilateral primary osteoarthritis, left hip (principal); S72.112A Displaced fracture of greater trochanter of left femur, initial encounter for closed fracture; M97.02XA Periprosthetic fracture around internal prosthetic left hip joint, initial encounter; W06.XXXA Fall from bed, initial encounter; Y92.230 Patient room in hospital as the place of occurrence of the external cause; R33.9 Retention of urine, unspecified; D62 Acute posthemorrhagic anemia; E87.1 Hypo-osmolality and hyponatremia; E83.51 Hypocalcemia; F03.90 Unspecified dementia, unspecified severity, without behavioral disturbance, psychotic disturbance, mood disturbance, and anxiety; R25.1 Tremor, unspecified; Z96.641 Presence of right artificial hip joint
CPT/HCPCS: 82947-QW; 97110-GP; 97116-GP; 97162-GP; 97164-GP; 97166-GO; 97168-GO; 97530-GO; 97530-GP; 97532-GO; 97535-GO; C1713; G8978-GP-CJ; G8978-GP-CM; G8979-GP-CI; G8979-GP-CK; G8987-GO-CK; G8987-GO-CL; G8987-GO-CM; G8988-GO-CI; G8988-GO-CK; J0171; J0690; J1100; J1170; J1650; J1885; J2370; J2405; J2704; J2765; J2795; J3010; J3490; P9016; P9040

== ENCOUNTER 2017-04-19 12:50 | Emergency (ER) | payer OTHER ==
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
[2017-04-19] MEDS ORDERED: fentaNYL 100 MCG/2 ML INJ IVP ONE ×2 (13:18→14:01)
[2017-04-19] MEDS ORDERED: PROPOFOL 200 MG/20 ML VIAL ONE (14:59)
[2017-04-19 16:16] VITALS: RESP 12
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
[2017-04-19 17:02] VITALS: BP 140/84; PULSE 97; TEMP 98.4; O2SAT 94
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
== END 2017-04-19 16:49 | disposition home or self-care (01) ==
LOC: EDUNIT#
PROC: 0SSBXZZ Reposition Left Hip Joint, External Approach (ICD-10-PCS; principal; 2017-04-19)
DX: T84.021A Dislocation of internal left hip prosthesis, initial encounter (principal); W19.XXXA Unspecified fall, initial encounter; Y82.8 Other medical devices associated with adverse incidents; Y99.8 Other external cause status; Y93.55 Activity, bike riding
CPT/HCPCS: 27265; 72170; 73502; 99156; 99285; J2704; J3010

== ENCOUNTER 2017-04-23 14:27 | Emergency (ER) | payer OTHER ==
[2017-04-23 14:41] VITALS: TEMP 97.5
--- NOTE | 2017-04-23 15:17 | EDPHY ---
H & P Stated Complaint: L hip pain Time Seen by Provider: 04/23/17 15:00 HPI/ROS: Chief Complaint: Left hip pain HPI: 86-year-old woman with a history of bilateral hip replacements and several dislocations in the past [facility] a [facility] with onset of left hip pain and deformity. The patient has a history of dementia and is unable to give me any history. Per EMS report patient a slid possibly out of her wheelchair. She is currently at her baseline. She received 150 mcg of fentanyl from EMS. She is not oriented to place or time. No reports of other injuries. She did not hit her head. There is no reported loss of consciousness. The patient was just seen here 4 days ago he quit dislocation was reduced by Dr. Almanza. ROS a on the obtainable secondary to the patient's confusion PMH: Hip arthroplasty, anxiety, depression, hypothyroidism, tremor, arthritis Social History: No smoking, no alcohol, no recreational drug use Family History: non-contributory Physical Exam: Gen: Awake, Alert, No Distress HEENT: Nose: no rhinorrhea Eyes: PERRLA, EOMI Mouth: Moist mucosa Neck: Supple, no JVD Chest: nontender, lungs clear to auscultation Heart: S1, S2 normal, no murmur Abd: Soft, non-tender, no guarding Ext: Left leg is shortened and internally rotated. 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, GETS INJECTIONS TO BACK, ESSENTIAL TREMOR, anxiety , depression - Social History Smoking Status: Never smoked Constitutional: Initial Vital Signs Temperature (C) 36.4 C 04/23/17 14:40 Heart Rate 93 04/23/17 14:40 Respiratory Rate 18 04/23/17 14:40 Blood Pressure 169/74 H 04/23/17 14:40 O2 Sat (%) 95 04/23/17 14:40 O2 Delivery Mode [Post Non-Rebreather Mask Procedure 1st] O2 Delivery Mode [Procedural Non-Rebreather Mask 1st] O2 Delivery Mode Nasal Cannula O2 (L/minute) [Post Procedure 15 1st] O2 (L/minute) [Procedural 1st] 15 Allergies/Adverse Reactions: No Known Allergies Allergy (Verified 04/23/17 14:37) Home Medications: Medication Instructions Recorded Fluoxetine HCl [Prozac 40 mg] 40 mg PO DAILY 11/12/16 Levothyroxine [Synthroid 88 mcg 88 mcg PO DAILY06 11/12/16 (*)] Primidone 50 mg PO BID 11/12/16 Propranolol HCl [Inderal 20mg (*)] 20 mg PO BID 11/12/16 clonazePAM [Klonopin (*)] 0.25 mg PO HS 02/14/17 Acetaminophen [Tylenol ES 500 mg 1,000 mg PO Q8H tab 03/30/17 (*)] Calcium Carbonate [Tums 500MG (*)] 500 mg PO TID tab.chew 03/30/17 Enoxaparin [Lovenox] 30 mg SC DAILY syr 03/30/17 Ondansetron Odt [Zofran Odt 4 mg 4 mg PO Q6HRS PRN tab 03/30/17 (*)] Polyethylene Glycol 3350 [Miralax 17 gm PO DAILY PRN pkt 03/30/17 17 gm (*)] Sennosides/Docusate Sodium 1 - 2 tab PO BID tab 03/30/17 [Senokot-S] Temazepam [Restoril 15 MG (*)] 15 mg PO HS PRN cap 03/30/17 celeCOXIB [Celebrex (*)] 200 mg PO DAILY cap 03/30/17 oxyCODONE IR [Oxycodone Ir (*)] 2.5 - 5 mg PO Q6H PRN tab 03/30/17 Medical Decision Making - Diagnostics Imaging Results: Imaging Impressions Hip X-Ray 04/23/17 14:45 Impression: Recurrent left hip dislocation. Procedures: Procedure: Procedural sedation. A pre-sedation evaluation was completed on the patient at 15 30. Patient is an appropriate candidate for procedural sedation. The risks of the sedation were discussed with the patient. A time out was completed. The patient was sedated with propofol, 60 mg. The patient was monitored with continuous pulse oximetry and child monitor. There were no complications and no significant hypoxemia. I remained at the bedside for the sedation. The total time I spent in the procedural sedation was 15 min. ED Course/Re-evaluation: I have reviewed the patient's records. She was here 4 days ago for a dislocation. At that time Dr. Almanza perform the reduction. I will call Dr. Almanza now in consultation for planned reduction and further care. Dr. sandra clarke has perform the reduction walk perform the sedation. Patient is awake alert and appropriate. She has been placed in an abduction splint. She will be discharged back to the nursing facility for further care. Departure - Departure Disposition: Home, Routine, Self-Care Clinical Impression: Hip dislocation, left Condition: Good Instructions: Hip Dislocation (ED) Additional Instructions: Keep the brace in place until cleared by Dr. sandra clarke. Return to the emergency department for increasing pain, numbness, weakness, or any other concerns. Referrals: Selene Guillory MD [Primary Care Provider] - As per Instructions Rachell Almanza MD [Medical Doctor] - As per Instructions
[2017-04-23] MEDS ORDERED: PROPOFOL 200 MG/20 ML VIAL ONE (15:48)
[2017-04-23 17:16] VITALS: RESP 18
[2017-04-23 18:21] VITALS: BP 150/71; PULSE 96; O2SAT 92
--- NOTE | 2017-04-23 18:27 | ASMTCMCOM ---
CM Note CM Note Notes: Received a call from [place] with [facility] ([phone]); pt presented from [facility] for left hip re-dislocation. Patient medically evaluated and placed in hip brace; non-emergent stretcher transport arranged through [facility]. RN given MC # to call for report. PCS completed, copy provided to EMS; original PCS to be placed in chart. Date Signed: 04/23/2017 06:26 PM Electronically Signed By:Vaishali Chadwick RN
--- NOTE | 2017-04-23 18:29 | ASDISCHSUM ---
Discharge Information Plan Status:SNF Medically Cleared to Leave: Discharge Date:04/23/2017 06:21 PM D/C Disposition:[facility] Facility ADT D/C Disposition:Home, Routine, Self-Care Projected Discharge Date:04/23/2017 06:21 PM Transportation at D/C:ALS/BLS Discharge Delay Reason: Follow-Up Date:04/23/2017 06:21 PM Discharge Slot: Final Diagnosis: Placement Information Patient Contact Information Contact Name:TU Relationship:Daughter Address:[address] City:[place] Alternate Phone: State/Zip Code:[place] [address] Email: Financial Information Financial Class: Primary Plan Desc:MEDICARE OUTPATIENT Primary Plan Number:[id number] Secondary Plan Desc:ANTHONY INDEMNITY Secondary Plan Number:[id number] Assessment Information [facility] CM Progress Note CM Note CM Note Notes: Received a call from [place] with [facility] ([phone]); pt presented from [facility] for left hip re-dislocation. Patient medically evaluated and placed in hip brace; non-emergent stretcher transport arranged through [facility]. RN given # to call for report. PCS completed, copy provided to EMS; original PCS to be placed in chart. Date Signed: 04/23/2017 06:26 PM Electronically Signed By:Vaishali Chadwick RN LACE LACE Acuity / Level of Care Answers: No. Comorbidities - select Answers: Dementia all that apply Emergency dept visits in Answers: 4+ last 6 months Score: 7 Date Signed: 04/23/2017 06:27 PM Electronically Signed By:Vaishali Chadwick RN Intervention Information Intervention Type:Transportation Date of Service:04/23/2017 06:28 PM Patient Type:Emergency Room Staff Member:MARIE Chadwick Sharon Hours:0.25 Discipline:Quill Machine Tender Severity: Comment:
--- NOTE | 2017-04-24 07:55 | GCON ---
[f rep st] CONSULTATION DATE OF CONSULTATION: 04/23/2017 REFERRING PHYSICIAN: Nadir Alvarado MD REASON FOR CONSULTATION: Consultation is from the emergency department, Dr. Alvarado, to me, Dr. Almanza, for a left hip dislocation. HISTORY: The patient is an 86-year-old female, well-known to me, who sustained a left hip dislocation. I called [facility] for report, who stated that patient was on the bathroom commode, had increase in pain, and they took an x- ray and found that the patient had a hip dislocation. The patient was sent to the emergency room. Currently, patient is not conversant, in pain. The patient 's daughter has not yet arrived. PHYSICAL EXAMINATION: The patient's left lower extremity is shortened, externally rotated. MEDICATIONS: Pleas see prior consultation. PAST MEDICAL HISTORY: Please see prior consultation. RADIOGRAPHS: Bilateral x-rays show a left anterior hip dislocation. ASSESSMENT AND PLAN: The patient is an 86-year-old female with a complicated total hip history with revision for a periprosthetic fracture, who has sustained multiple dislocations. At this point, recommended proceeding with reduction and placement into a hip abduction brace. PROCEDURE: Closed reduction of the left hip with emergency department providing conscious sedation. A postoperative x-ray was reviewed. We called the [facility] service and they had placed a hip abduction brace that is to be maintained at all times, with abduction at 20 degrees, hip flexion at 20 degrees, and leg rotation at neutral. The patient will follow up in the clinic as scheduled. /[id number]/MODL MTDD
== END 2017-04-23 18:21 | disposition home or self-care (01) ==
LOC: EDUNIT#
PROC: 0SSBXZZ Reposition Left Hip Joint, External Approach (ICD-10-PCS; principal; 2017-04-23)
DX: T84.021A Dislocation of internal left hip prosthesis, initial encounter (principal); W19.XXXA Unspecified fall, initial encounter; Y82.8 Other medical devices associated with adverse incidents
CPT/HCPCS: 27265; 73502; 99152; 99285; J2704